=== PATIENT | male | born 1965 | race Caucasian/White ===

== ENCOUNTER → 2017-08-01 | Outpatient (CLI) | payer OTHER ==
--- NOTE | 2017-08-01 19:53 | MR ---
EXAMINATION TYPE: MR knee LT wo con DATE OF EXAM: 08/01/2017 5:05 PM COMPARISON: NONE HISTORY: Pain TECHNIQUE: Multiplanar, multisequence imaging of the left knee is performed. FINDINGS: MEDIAL MENISCUS: Posterior horn medial meniscal tear. Anterior horn is intact. LATERAL MENISCUS: Anterior and posterior horns are intact without tear. CRUCIATE LIGAMENTS: The anterior and posterior cruciate ligaments are intact and unremarkable. COLLATERAL LIGAMENTS: The medial collateral ligament and lateral collateral ligament complex are intact and unremarkable. EXTENSOR MECHANISM: Visualized quadriceps and patellar tendons are intact. EFFUSION: No evidence for joint effusion. POPLITEAL CYST: No popliteal/garrett cyst. TRICOMPARTMENT SPACES: The tricompartment joint spaces appear within normal limits. CARTILAGE: The articular cartilage is maintained without abnormal signal or full-thickness defect. BONE MARROW SIGNAL: No focal abnormal marrow signal is appreciated: OTHER: Strain and partial tear of the popliteus musculature and tendon. IMPRESSION: 1. Medial meniscal tear. 2.Strain and partial tear of the popliteus musculature and tendon.
== END | disposition home or self-care (01) ==
LOC: RADMRIMAIN 16:23
PROVIDERS: ATTEND Orthopaedic Surgery
DX: S83.242A Other tear of medial meniscus, current injury, left knee, initial encounter (principal); S86.912A Strain of unspecified muscle(s) and tendon(s) at lower leg level, left leg, initial encounter

== ENCOUNTER 2017-09-14 08:30 | Day surgery (SDC) | payer OTHER ==
[2017-09-06 23:25] VITALS: BMI 29.0
--- NOTE | 2017-09-13 15:21 | HP ---
HISTORY AND PHYSICAL REASON FOR ADMISSION: Surgery scheduled for 09/14/2017 Karan Lockett is a 51-year-old patient seen with progressive left knee pain. Treatment options were discussed, patient elected to proceed with left knee arthroscopy. Consent was obtained. PAST MEDICAL HISTORY: Noncontributory. PAST SURGICAL HISTORY: Knee arthroscopy, shoulder arthroscopy. DAILY MEDICATIONS: Ibuprofen. ALLERGIES: None reported. SOCIAL HISTORY: Patient denies tobacco use. PHYSICAL EXAMINATION: Evaluation of the left knee range of motion 0 to 120 degrees. Tenderness medial joint line. Positive medial Kris's. Ligaments stable. Hip rotation without pain. Distal neurovascular exam is intact. RADIOGRAPHS: Radiographs of the left knee revealed mild osteoarthritis. MRI left knee revealed medial meniscal tear. IMPRESSION: Internal derangement, left knee with medial meniscal tear. PLAN: Left knee arthroscopy with partial meniscectomy and debridement. Surgery scheduled for 09/14/2017. MMODL / IJN: [id number] /
[~2017-09-14 08:30] MED LIST: DEXAMETHASONE SOD PHOSPHATE 10 MG/ML 1 ML VIAL IV ONE; LACTATED RINGERS 1,000 ML IV SCH; LIDOCAINE 1% 20 ML VIAL (10MG/ML) FOR IV START INTRADERMA PRN; MIDAZOLAM 2 MG/2 ML VIAL IV PRN; ONDANSETRON 4 MG/2 ML VIAL IVP ONE; SCOPOLAMINE 1.5MG/72HR PATCH TRANSDERM ONE; ceFAZolin IN SWFI 2 GM/20 ML SYRINGE IVP ONE
[2017-09-14] MEDS ORDERED: MIDAZOLAM 2 MG/2 ML VIAL ONE (08:59)
[2017-09-14] MEDS ORDERED: PROPOFOL 10 MG/ML 20 ML VIAL IV ONE (08:59)
[2017-09-14] MEDS ORDERED: fentaNYL (PF) 50 MCG/ML 2 ML AMP ONE (08:59)
[2017-09-14] MEDS ORDERED: KETOROLAC 30 MG/ML 1 ML VIAL ONE (08:59)
[2017-09-14] MEDS ORDERED: LIDOCAINE 1% INJ 10MG/ML (20 ML MDV) ONE (08:59)
[2017-09-14] MEDS ORDERED: BUPIVACAINE (PF) 0.25% 30 ML VIAL SQ ONE (09:21)
[2017-09-14 09:54] VITALS: TEMP 97.5
--- NOTE | 2017-09-14 09:56 | P.OP ---
Date of Procedure: 09/14/17 Preoperative Diagnosis: Internal derangement left knee Postoperative Diagnosis: 1. Tear medial and lateral meniscus left knee 2. Grade 3 chondromalacia medial femoral condyle left knee 3. Grade 3 chondromalacia patella left knee 4. Reactive synovitis medial and suprapatellar compartments left knee Procedure(s) Performed: 1. Arthroscopic partial medial and lateral meniscectomy left knee 2. Arthroscopic chondroplasty medial femoral condyle left knee 3. Arthroscopic chondroplasty patella left knee 4. Arthroscopic partial synovectomy medial and suprapatellar compartments left knee Implants: none Anesthesia: YASHA, local Surgeon: Peter Loving Estimated Blood Loss (ml): 10 Pathology: none sent Condition: stable Disposition: PACU Indications for Procedure: 51-year-old patient seen with progressive left knee pain. After treatment options were discussed, he elected to proceed with arthroscopy. Operative Findings: see description of procedure Description of Procedure: Patient was taken to the operative suite. Patient underwent a general anesthetic by the department of anesthesia. Patient was given preoperative antibiotics. The left lower extremity was placed in a well-padded arthroscopic leg acevedo. The left leg was prepped and draped in the normal sterile orthopedic fashion. A lateral parapatellar and suprapatellar incision was made. Trochars were inserted. Arthroscopy was initiated. Suprapatellar pouch revealed diffuse thick reactive synovitis. The patellofemoral joint appeared to articulate congruently. There was grade 3 chondromalacia of the patella with some osteochondral tears present.. The scope was guided into the medial gutter. No loose bodies or plica were identified. The scope was then guided into the medial compartment. A medial parapatellar incision was made. Trocar inserted followed by probe. There was a complex tear posterior horn medial meniscus. Grade 3 chondromalacia changes of the medial femoral condyle with osteochondral tears present. Reactive synovitis anteriorly. Grade 1/2 chondromalacia changes of the medial tibial plateau. I performed a partial medial meniscectomy down to stable tissue. I performed a chondroplasty of the medial femoral condyle down to stable tissue. I performed a partial synovectomy. The residual meniscus and osteochondral surface were found to be stable. Scope and probe were then guided into the intercondylar notch. Cruciates were identified, probed and found to be stable. The scope and probe were then guided into lateral compartment. There was a small superficial radial tear midbody lateral meniscus. The lateral femoral condyle and tibial plateau were stable. No reactive synovitis or loose bodies. A partial lateral meniscectomy was performed on a stable tissue. The residual meniscus was stable. The scope was in guided back into the suprapatellar compartment. I introduced a motorized shaver into the suprapatellar compartment. I debrided piecemeal fragments of meniscus I encountered. I performed a chondroplasty of the patella down to stable tissue and partial synovectomy. The shaver was removed. I took one more look on the entire knee, no residual debris. Instruments were now removed from the joint. The joint was infiltrated with .25 % Marcaine. Steri-Strips were applied to the portal sites. Sterile dressings were applied. The patient was placed into a JEFRY hose. No tourniquet was utilized. The patient was awakened, transferred to a bed and taken to recovery stable satisfactory condition.
[2017-09-14] MEDS: HYDROmorphone 0.5 MG/0.5 ML SYRINGE IVP PRN ×2 (10:07→10:18)
[2017-09-14 10:50] VITALS: RESP 18
[2017-09-14] MEDS ORDERED: HYDROcodone/APAP 5-325MG 1 EACH TAB PO ONE (11:10)
[2017-09-14 11:52] VITALS: BP 116/80; PULSE 61
== END 2017-09-14 12:16 | disposition home or self-care (01) ==
LOC: OR 08:30
PROVIDERS: ATTEND Orthopaedic Surgery
DX: S83.242A Other tear of medial meniscus, current injury, left knee, initial encounter (principal); S83.282A Other tear of lateral meniscus, current injury, left knee, initial encounter; X58.XXXA Exposure to other specified factors, initial encounter; M22.42 Chondromalacia patellae, left knee; M65.862 Other synovitis and tenosynovitis, left lower leg; Z79.1 Long term (current) use of non-steroidal anti-inflammatories (NSAID)
CPT/HCPCS: 29880; J2250; J1100; J0690; J2405; J2001; J3010; J1885; J2704; J1170

== ENCOUNTER → 2019-02-25 | Outpatient (CLI) | payer OTHER | END | disposition home or self-care (01) | LOC: LABPAT 15:40 | PROVIDERS: ATTEND Orthopaedic Surgery | DX: Z01.812 Encounter for preprocedural laboratory examination (principal) | CPT/HCPCS: 87070 ==

== ENCOUNTER 2019-03-18 05:59 | Day surgery (SDC) | payer OTHER ==
[2019-03-13 11:24] VITALS: BMI 28.5
--- NOTE | 2019-03-17 13:40 | HP ---
HISTORY AND PHYSICAL DATE OF SURGERY: 03/18/2019 Karan Lockett 53-year-old patient seen with symptomatic left knee osteoarthritis. We discussed treatment options with him. He elected to proceed with left total knee arthroplasty. Consent regarding the procedure was obtained. Medical clearance provided by Dr. Jamshid Hobbs. PAST MEDICAL HISTORY: Noncontributory. PAST SURGICAL HISTORY: Knee arthroscopy, shoulder arthroscopy. DAILY MEDICATIONS: Ibuprofen as needed. ALLERGIES: None reported. SOCIAL HISTORY: Denies tobacco use. PHYSICAL EXAMINATION: Evaluation of the left knee is range of motion is 0 to 130 degrees. He has tenderness along the medial joint line. Crepitus along the medial and patellofemoral compartments with range of motion. Pain with patellofemoral compression. Ligaments stable. Hip rotation without pain. His distal neurovascular exam is intact. RADIOGRAPHS: Radiographs of the left knee revealed moderate to severe osteoarthritic changes. IMPRESSION: Left knee osteoarthritis. PLAN: Left total knee arthroplasty. MMODL / IJN: [id number] /
[~2019-03-18 05:59] MED LIST changes: +ACETAMINOPHEN TAB 500 MG TAB PO ONE; -DEXAMETHASONE SOD PHOSPHATE 10 MG/ML 1 ML VIAL IV ONE; +MELOXICAM 7.5 MG TAB PO ONE; -MIDAZOLAM 2 MG/2 ML VIAL IV PRN; -SCOPOLAMINE 1.5MG/72HR PATCH TRANSDERM ONE; +TRANEXAMIC ACID 1,000 MG in SODIUM CHLORIDE 0.9% 100 ML IVPB ONE
[2019-03-18 06:41] VITALS: RESP 16
[2019-03-18] MEDS ORDERED: fentaNYL (PF) 50 MCG/ML 2 ML AMP IV ONE (06:52)
[2019-03-18] MEDS ORDERED: MIDAZOLAM (PF) 2 MG/2 ML VIAL IV ONE (06:52)
[2019-03-18] MEDS ORDERED: DEXAMETHASONE SOD PHOS (MDV) 100 MG/10 ML VIAL IV ONE (07:17)
[2019-03-18] MEDS ORDERED: SCOPOLAMINE 1.5MG/72HR PATCH TRANSDERM ONE (07:17)
[2019-03-18] MEDS ORDERED: ROPIVACAINE 246.25 MG, EPINEPHrine 0.5 MG, KETOROLAC 30 MG, cloNIDine HCL/PF 80 MCG, WA... MISCELLANE ONE ×5 (07:23)
[2019-03-18] MEDS ORDERED: SUCCINYLCHOLINE CHLORIDE 100 MG/5 ML SYR IV ONE (07:26)
[2019-03-18] MEDS ORDERED: SODIUM CHLORIDE 0.9% 100 ML BAG ONE (07:26)
[2019-03-18] MEDS ORDERED: LIDOCAINE 1% INJ 10MG/ML (20 ML MDV) ONE (07:26)
[2019-03-18] MEDS ORDERED: fentaNYL (PF) 50 MCG/ML 2 ML AMP ONE (07:26)
[2019-03-18] MEDS ORDERED: PROPOFOL 10 MG/ML 20 ML VIAL IV ONE (07:26)
[2019-03-18] MEDS ORDERED: MIDAZOLAM 2 MG/2 ML VIAL ONE (07:26)
[2019-03-18] MEDS ORDERED: HYDROmorphone (PF) 1 MG/ML ONE (07:26)
[2019-03-18] MEDS ORDERED: TRANEXAMIC ACID 1,000 MG/10 ML VIAL ONE (07:26)
[2019-03-18] MEDS ORDERED: ceFAZolin 3,000 MG in SODIUM CHLORIDE 0.9% IRRIGATIO 3,000 ML IRRIGATION ONE (08:08)
[2019-03-18] MEDS ORDERED: LACTATED RINGERS 1,000 ML IV ONE (08:45)
[2019-03-18] MEDS ORDERED: ROPIVACAINE 1,100 MG, SODIUM CHLORIDE 0.9% 500 ML 330 ML MISCELLANE PRN ×2 (09:44)
[2019-03-18] MEDS ORDERED: HYDROcodone/APAP 7.5-325MG 1 EACH TAB PO PRN (09:48)
[2019-03-18] MEDS ORDERED: HYDROcodone/APAP 5-325MG 1 EACH TAB PO PRN (09:48)
[2019-03-18] MEDS ORDERED: NALOXONE 0.4 MG/ML 1 ML VIAL IV PRN ×2 (09:48→10:15)
[2019-03-18] MEDS ORDERED: HYDROmorphone 0.5 MG/0.5 ML SYRINGE IVP PRN ×2 (09:48)
[2019-03-18] MEDS ORDERED: ONDANSETRON 4 MG/2 ML VIAL IVP PRN (09:48)
[2019-03-18] MEDS ORDERED: HYDROmorphone 1 MG/ML 1 ML SYRINGE IVP PRN (09:48)
--- NOTE | 2019-03-18 09:48 | P.OP ---
Date of Procedure: 03/18/19 Preoperative Diagnosis: Left knee osteoarthritis Postoperative Diagnosis: Left knee osteoarthritis Procedure(s) Performed: Left total knee arthroplasty Implants: 1. Microport evolution size 6 left MP cemented femoral component 2. Microport evolution 6+ left cemented tibial baseplate 3. Microport evolution size 6 left CS 10 mm polyethylene tibial insert 4. Microport advance 38 mm all polyethylene cemented patella Anesthesia: GETA, regional (Abductor canal catheter), local Surgeon: Peter Loving [employer] Sales Executive #1: Colt Martinez Estimated Blood Loss (ml): 50 Pathology: other (Bone) Condition: stable Disposition: PACU Indications for Procedure: 53-year-old patient seen with symptomatic left knee osteoarthritis. After treatment options were discussed, he elected to proceed with knee arthroplasty. Operative Findings: see description of procedure Description of Procedure: Patient was taken to the operative suite after having an adductor canal catheter placed by the department of anesthesia for postoperative pain management. Patient underwent a general anesthetic by the department of anesthesia. Patient was given preoperative IV intake antibiotics and TXA. A well-padded tourniquet was placed about the left lower extremity. The lower extremity was then prepped and draped in the normal sterile orthopedic fashion. The extremity was elevated, a tourniquet was insufflated to 300. A standard anterior incision was made sharply through skin. Dissection was taken down through the subcutaneous soft tissues down to the extensor mechanism. A medial arthrotomy was performed, patella was everted and knee was flexed. There was advanced osteoarthritis noted. I introduced my distal intramedullary femoral drill. I then introduced the distal femoral cutting jig. Vishal MENDEZ secured the cutting jig with 2 pins. I held retractors in position while Vishal MENDEZ performed the distal femoral resection through the guide area we now removed her distal femoral cutting guide. We now placed our 4-in-1 femoral cutting block and positioned and it was secured with 2 pins by Vishal MEDNEZ while I held the block in position. The distal femoral finishing was now completed. A proximal tibial cutting guide was positioned. I held the guide in the appropriate position with both hands well Vishal MENDEZ inserted stabilizing pins into the guide. Prox imal tibial cut was made. We now placed a trial femoral component into position, along with an appropriate size tibial tray and insert. We now took the knee through range of motion and had full extension good flexion and good overall soft tissue balance noted. The patella was everted and stabilized with 2 towel clips held by Vishal MENDEZ while I performed a flush with patellar quad tendon utilizing a fresh sawblade. We templated the patella, appropriate drill holes were made. An appropriate trial patella was positioned, knee was taken through full range of motion with the patella tracking very nicely. The trial patella was removed. Drill holes were made through the femoral component. All trial components were removed after marking off the appropriate rotation of the tibia. Retractors were now positioned along the proximal tibia. An appropriate keel punch was made with the appropriate size tibial guide by myself on Vishal MENDEZ assisted by holding retractors. At this point appropriate size implants were chosen and opened. The joint was irrigated copiously with pulse lavage mechanical irrigation. The posterior capsule was infiltrated with local analgesic. The wound was irrigated with pulse lavage mechanical irrigation. We mixed antibiotic methylmethacrylate. We placed the knee into flexion. We placed multiple retractors assisted by Vishal MENDEZ to expose the proximal tibia. Once the methyl methacrylate was ready, the tibial component was cemented into place removing any excess methylmethacrylate form by both myself and Vishal MENDEZ. The femoral component was cemented into place removing the removing any excess methylmethacrylate performed by both myself and Vishal MENDEZ. We then inserted the appropriate size polyethylene tibial insert. We made sure that it was locked into position. We took the knee into full extension, and then back in a flexion making sure we had removed any excess methylmethacrylate. The patellar component was then cemented down and secured with clamp. Excess methylmethacrylate removed. We kept the knee in full extension, patellar clamp in position until methylmethacrylate had hardened. Once it had hardened the patellar clamp was removed. The knee was taken through full range of motion. The patella tracked nicely. There was good soft tissue balancing. The tourniquet was now released. Additional hemostasis was achieved via electrocautery. A second gram of TXA was given. The wound again was irrigated with pulse lavage mechanical irrigation. The superficial soft tissues were infiltrated local analgesic. The extensor mechanism was repaired with Vicryl. We checked the repair with range of motion and it was stable. The subcutaneous soft tissues were repaired with Vicryl in layers. The skin was approximated with pernio/Dermabond. Sterile dressings were applied followed by loose web roll and Harman bandage. The patient was transferred to a bed, and taken to recovery in stable and satisfactory condition. Vishal MENDEZ assisted with this complex procedure.
[2019-03-18] MEDS: MEPERIDINE 50 MG/ML SYRINGE IVP ONE ×2 (09:50→10:05)
[2019-03-18 09:54] VITALS: TEMP 97.7
[2019-03-18] MEDS ORDERED: LACTATED RINGERS 1,000 ML IV SCH (10:00)
[2019-03-18] MEDS: HYDROmorphone 0.5 MG/0.5 ML SYRINGE IVP PRN ×2 (10:33→10:41)
--- NOTE | 2019-03-18 10:41 | P.ANPRN ---
Procedure Note - Anesthesia - Nerve Block Performed Left Adductor Canal Infusion Time Out Performed: Yes Date of Procedure: 03/18/19 Procedure Start Time: 06:58 Procedure Stop Time: 07:10 Location of Patient Procedure: PreOp Indication: Acute Post-Operative Pain, Requested by physician Sedation Type: Sedate with meaningful contact maintained Preparation: Sterile Prep, Sterile Dressing Position: Supine Catheter: Indwelling Needle Types: Pajunk Needle Gauge: 18 Technique: Ultrasound Injectate: 0.5% Ropivacaine (see comment for volume) (20 ml)
--- NOTE | 2019-03-18 10:43 | XR ---
Left knee HISTORY: Postop 2 views of the left knee Patient is status post left knee arthroplasty. There is lucency in the soft tissues compatible with p ostop state. There is anatomic alignment. IMPRESSION: Orthopedic follow-up.
[2019-03-18] MEDS ORDERED: ceFAZolin IN SWFI 2 GM/20 ML SYRINGE IVP ONE (13:30)
[2019-03-18 15:07] VITALS: BP 119/74; PULSE 73
== END 2019-03-18 15:01 | disposition home health service (06) ==
LOC: OR 05:59
PROVIDERS: ATTEND Orthopaedic Surgery
DX: M17.12 Unilateral primary osteoarthritis, left knee (principal); Z79.1 Long term (current) use of non-steroidal anti-inflammatories (NSAID)
CPT/HCPCS: 27447; 64448; 88300; 73560; 97161; C1776; C1713; C1772; J2250 ×2; J0171; J2175; J2405; J0690 ×2; J2001; J3010; J1885; J1170 ×2; J1100; J2795; J0330; J2704; J0735

== ENCOUNTER → 2020-04-21 | Outpatient (CLI) | payer OTHER ==
--- NOTE | 2020-04-21 19:49 | CT ---
EXAMINATION TYPE: CT abdomen wo con DATE OF EXAM: 04/21/2020 COMPARISON: None HISTORY: Umbilical hernia, periumbilic swelling CT DLP: 700.9 mGycm Automated exposure control for dose reduction was used. Images were obtained from the diaphragm to the iliac crests with oral contrast only. Lung bases are clear. There is no pleural effusion. Heart size is normal. Liver spleen pancreas gallbladder stomach appear normal. Bile ducts are not dilated. There is no adre nal mass. Kidneys have normal size. There is no hydronephrosis. Ureters are not dilated. There is no retroperitoneal adenopathy. There is small umbilical hernia measuring 2 cm that contains fat. I see n o edema. There is no evidence of mesenteric edema. There is no ascites or free air. There is no sign of a phuong l obstruction. Appendix is posterior and appears normal. Lumbar vertebra have normal alignment. There is no compression fracture. Disc spaces are fairly tana l. IMPRESSION: Small umbilical hernia contains fat. Otherwise negative CT scan of the abdomen.
== END | disposition home or self-care (01) ==
LOC: RADCTMAIN 18:11
PROVIDERS: ATTEND Family Medicine
DX: K42.0 Umbilical hernia with obstruction, without gangrene (principal)
CPT/HCPCS: 74150

== ENCOUNTER 2020-11-09 17:52 | Observation (INO) | payer OTHER ==
[2020-11-09 17:34] LABS: HCT 42.3 % (39.0-53.0); HGB 15.3 gm/dL (13.0-17.5); MCH 30.9 pg (25.0-35.0); MCHC 36.2 g/dL (31.0-37.0); MCV 85.4 fL (80.0-100.0); Mean Platelet Volume 7.6; Platelet Count 205 k/uL (150-450); RBC 4.95 m/uL (4.30-5.90); RDW 13.1 % (11.5-15.5); WBC 7.1 k/uL (3.8-10.6)
--- NOTE | 2020-11-09 17:40 | CT ---
EXAMINATION TYPE: CT abdomen pelvis w con DATE OF EXAM: 11/09/2020 COMPARISON: CT scan of the abdomen and pelvis with contrast. Study date: 11/09/2020 5:06 PM. HISTORY: Right lower quadrant pain. Contrast: 100 cc of Isovue-300 and oral contrast. Total DLP 1538. Comparison is made to prior examination from 04/21/2020 HISTORY: Right lower quadrant abdominal pain. CT DLP: 1538 mGycm Automated exposure control for dose reduction was used. TECHNIQUE: Helical acquisition of images was performed from the lung bases through the pelvis. CONTRAST: Performed with Oral Contrast and with IV Contrast, patient injected with 100ml mL of Isovue 300. FINDINGS: LUNG BASES: No significant abnormality is appreciated. LIVER/GB: No significant abnormality is appreciated. PANCREAS: Pancreas tail appears irregular and somewhat prominent, however, no definite mass lesion is seen. Overall appearance unchanged compared to prior examination. SPLEEN: No significant abnormality is seen. ADRENALS: No significant abnormality is seen. KIDNEYS: No significant abnormality is seen. FREE AIR: No free air is visualized. RETROPERITONEAL ADENOPATHY: None visualized REPRODUCTIVE ORGANS: No significant abnormality is seen URINARY BLADDER: No significant abnormality is seen. PELVIC ADENOPATHY: None visualized. OSSEOUS STRUCTURES: No significant abnormality is seen. BOWEL: The appendix appears slightly prominent. A tiny appendicolith is seen in the appendix. There is no significant fat stranding or fluid collections around the appendix. No definite evidence of gracie endicitis. There is extensive diverticulosis with fat stranding along the sigmoid colon in the anterior pelvis w ithout definite evidence of an abscess. Mild mild diverticulitis or resolving diverticulitis is possi ble. No definite abscess collections. No pneumoperitoneum. Additionally, there is focal dilatation of the terminal ileum best seen on image 3-4 negative appendi x. The findings could represent mild ileus. OTHER: Prostate gland is enlarged measuring 6 cm. IMPRESSION: 1. APPENDIX APPEARS SLIGHTLY PROMINENT. A TINY APPENDICOLITH IS SEEN IN THE APPENDIX. NO ADDITIONAL E VIDENCE TO SUGGEST APPENDICITIS. 2. SEVERE AND EXTENSIVE DIVERTICULOSIS. MILD FAT STRANDING IS SEEN IN THE MID SIGMOID COLON IN THE AN TERIOR PELVIS. RESOLVING OR MILD DIVERTICULITIS IS FEASIBLE. NO DEFINITE EVIDENCE OF A PROMINENT DIVE RTICULITIS OR ABSCESS COLLECTION. NO PNEUMOPERITONEUM. ETIOLOGY FOR PATIENT'S SYMPTOMS AREN'T CLEAR. 3. THERE IS ALSO FOCAL DILATATION OF THE TERMINAL ILEUM SEEN BEST ON IMAGE 334 NEAR THE APPENDIX. THE FINDINGS COULD REPRESENT MILD ILEUS. NO DEFINITE EVIDENCE OF BOWEL OBSTRUCTION. Note: Differential diagnosis includes ileus, mild radiculitis, resolving diverticulitis, and mild gracie endicitis. No pneumoperitoneum or bowel obstruction. Please correlate clinically indicated.
[2020-11-09] MEDS ORDERED: PIPERACILLIN-TAZOBACTAM 3.375 GM in SODIUM CHLORIDE 0.9% 100 ML IVPB STA (19:31)
[2020-11-09] MEDS ORDERED: HYDROcodone/APAP 5-325MG 1 EACH TAB PO PRN (19:34)
[2020-11-09] MEDS ORDERED: MORPHINE SULFATE 4 MG/ML SYRINGE IV PRN (19:34)
[2020-11-09] MEDS ORDERED: NALOXONE 0.4 MG/ML 1 ML VIAL IV PRN (19:34)
[2020-11-09] MEDS ORDERED: ONDANSETRON 4 MG/2 ML VIAL IVP PRN (19:34)
[2020-11-09] MEDS ORDERED: ACETAMINOPHEN TAB 325 MG TAB PO PRN (19:34)
--- NOTE | 2020-11-09 19:34 | ED ---
Abdominal Pain HPI - General Chief Complaint: Abdominal Pain Stated Complaint: abnormal CT Time Seen by Provider: 11/09/20 19:19 Source: patient, RN notes reviewed Mode of arrival: ambulatory Limitations: no limitations - History of Present Illness Initial Comments: 54-year-old male presents emergency Department with chief complaint of right lower quadrant abdominal pain. Patient states the pain started Monday afternoon. Patient states pain is increase and located only has right lower quadrant. Patient denies any chest pain. Vomiting states slight nausea is slightly decreased oral intake he states he had a loose stool today denies any melanotic is no constipation or dysuria no hematuria patient's had prior hernia repair by Dr. sanchez. Patient does have a history of diverticulosis denies any prior reticulitis - Related Data Home Medications Medication Instructions Recorded Confirmed Ibuprofen [Motrin] 800 mg PO Q6H PRN 03/13/19 03/18/19 Previous Rx's Medication Instructions Recorded Aspirin [Adult Low Dose Aspirin EC] 81 mg PO BID #60 tablet. 03/18/19 Docusate [Colace] 100 mg PO DAILY #30 capsule 03/18/19 HYDROcodone/APAP 7.5-325MG [[place] 1 - 2 each PO Q6HR PRN #56 tab 03/18/19 7.5] traMADol HCl [Ultram] 50 mg PO Q6H PRN #28 tab 03/18/19 Allergies Allergy/AdvReac Type Severity Reaction Status Date / Time No Known Allergies Allergy Verified 11/09/20 17:58 Review of Systems ROS Statement: Those systems with pertinent positive or pertinent negative responses have been documented in the HPI. ROS Other: All systems not noted in ROS Statement are negative. Past Medical History Past Medical History: Hyperlipidemia History of Any Multi-Drug Resistant Organisms: None Reported Past Surgical History: Orthopedic Surgery Additional Past Surgical History / Comment(s): analia knee surgery, rt rotator cuff Past Anesthesia/Blood Transfusion Reactions: Motion Sickness Past Psychological History: No Psychological Hx Reported Smoking Status: Never smoker Past Alcohol Use History: Daily Past Drug Use History: None Reported General Exam Limitations: no limitations General appearance: alert, in no apparent distress Head exam: Present: atraumatic, normocephalic, normal inspection Eye exam: Present: normal appearance, PERRL, EOMI. Absent: scleral icterus, conjunctival injection, periorbital swelling ENT exam: Present: normal exam, normal oropharynx, mucous membranes moist Neck exam: Present: normal inspection, full ROM. Absent: tenderness, meningismus, lymphadenopathy Respiratory exam: Present: normal lung sounds bilaterally. Absent: respiratory distress, wheezes, rales, rhonchi, stridor Cardiovascular Exam: Present: regular rate, normal rhythm, normal heart sounds. Absent: systolic murmur, diastolic murmur, rubs, gallop, clicks GI/Abdominal exam: Present: soft, tenderness (Moderate right lower quadrant tenderness), normal bowel sounds. Absent: distended, guarding, rebound, rigid Back exam: Absent: CVA tenderness (R), CVA tenderness (L) Neurological exam: Present: alert, oriented X3 Skin exam: Present: warm, dry, intact, normal color. Absent: rash Course Vital Signs 11/09/20 17:55 Temperature 97.9 F Pulse Rate 61 Respiratory 18 Rate Blood Pressure 116/77 O2 Sat by Pulse 98 Oximetry Medical Decision Making - Medical Decision Making CT reviewed shows dilated appendix with appendicolith, dilated cecum mild fat stranding for diverticulitis. Patient will be admitted to medicine with IV antibiotics and consult surgery - Lab Data Result diagrams: 11/09/20 17:10 Lab Results 11/09/20 Range/Units 17:10 WBC 7.1 (3.8-10.6) k/uL RBC 4.95 (4.30-5.90) m/uL Hgb 15.3 (13.0-17.5) gm/dL Hct 42.3 (39.0-53.0) % MCV 85.4 (80.0-100.0) fL MCH 30.9 (25.0-35.0) pg MCHC 36.2 (31.0-37.0) g/dL RDW 13.1 (11.5-15.5) % Plt Count 205 (150-450) k/uL MPV 7.6 Disposition Clinical Impression: Diverticulitis, Appendicitis Disposition: ADMITTED IP TO THIS HOSP Condition: Fair Referrals: Jamshid Hobbs DO [Primary Care Provider] - 1-2 days
[2020-11-09] MEDS: SODIUM CHLORIDE 0.9% 1,000 ML IV SCH (20:59)
[2020-11-09 21:21] LABS: Appearance,Urine Clear (Clear); Bilirubin,Urine Negative (Negative); Blood,Urine Negative (Negative); Color,Urine Yellow; Glucose,Urine (UA) Negative (Negative); Ketones,Urine Negative (Negative); Leukocyte Esterase,Urine Negative (Negative); Nitrite,Urine Negative (Negative); Protein,Urine Negative (Negative); Urobilinogen,Urine <2.0 mg/dL (<2.0)
[2020-11-09 21:35] LABS: Specific Gravity,Urine >1.050 (1.001-1.035)
[2020-11-10 00:43] LABS: ALT 25 U/L (4-49); AST 23 U/L (17-59); African American GFR (CKD) >90 (>60 ml/min/1.73 sqM); Albumin 3.8 g/dL (3.5-5.0); Albumin/Globulin Ratio 1.6; Alkaline Phosphatase 86 U/L (38-126); Anion Gap 5 mmol/L; Blood Urea Nitrogen 10 mg/dL (9-20); Calcium 8.7 mg/dL (8.4-10.2); Carbon Dioxide 25 mmol/L (22-30); Chloride 104 mmol/L (98-107); Globulin 2.4 g/dL; Glucose 93 mg/dL (74-99); Non-African American GFR(CKD) >90 (>60 ml/min/1.73 sqM); Potassium 4.1 mmol/L (3.5-5.1); Sodium 134 mmol/L (137-145); Total Bilirubin 0.8 mg/dL (0.2-1.3); Total Protein 6.2 g/dL (6.3-8.2)
[2020-11-10] MEDS: PIPERACILLIN-TAZOBACTAM 3.375 GM in SODIUM CHLORIDE 0.9% 100 ML IVPB SCH ×3 (03:52→21:03)
[2020-11-10 11:59] LABS: Basophils % (A) 1 %; Eosinophils # (A) 0.1 k/uL (0-0.7); Eosinophils % (A) 2 %; HCT 44.9 % (39.0-53.0); HGB 15.5 gm/dL (13.0-17.5); Lymphocytes # (A) 1.6 k/uL (1.0-4.8); Lymphocytes % (A) 30 %; MCH 29.9 pg (25.0-35.0); MCHC 34.5 g/dL (31.0-37.0); MCV 86.6 fL (80.0-100.0); Mean Platelet Volume 7.6; Monocytes # (A) 0.4 k/uL (0-1.0); Monocytes % (A) 7 %; Neutrophils # (A) 3.1 k/uL (1.3-7.7); Neutrophils % (A) 59 %; Platelet Count 185 k/uL (150-450); RBC 5.18 m/uL (4.30-5.90); RDW 12.4 % (11.5-15.5); WBC 5.3 k/uL (3.8-10.6)
--- NOTE | 2020-11-10 12:00 | P.GSCN ---
History of Present Illness Consult date: 11/10/20 History of present illness: This 54-year-old male presented with a chief complaint of emergency department last night of right lower quadrant pain. He states his pain began on Monday. He's never had pain like this before he has had diverticulitis in the past he says that was mostly on his left side however. CAT scan was performed in the emergency department last night and there was fat stranding around the sigmoid colon and a prominent appendix radiologist stated they could not rule out appendicitis. Surgery was consulted however nobody called me last night patient was admitted and I was not notified until this morning 12 hours later. Today patient states he's feeling much better. He states that yesterday his pain was really only when he was moving and today he is not experiencing the same pain. He did have a bout of diarrhea this morning he denies any nausea or vomiting. He denies any sick contacts. He denies eating anything out of the ordinary he had finished on Monday. He states he is hungry he has no other complaints Past Medical History Past Medical History: Hyperlipidemia History of Any Multi-Drug Resistant Organisms: None Reported Past Surgical History: Orthopedic Surgery Additional Past Surgical History / Comment(s): analia knee surgery, rt & left rotator cuff Past Anesthesia/Blood Transfusion Reactions: Motion Sickness Past Psychological History: No Psychological Hx Reported Smoking Status: Never smoker Past Alcohol Use History: Daily Additional Past Alcohol Use History / Comment(s): makes own beer. Past Drug Use History: None Reported Medications and Allergies Home Medications Medication Instructions Recorded Confirmed Type Naproxen Sodium [Aleve] 220 mg PO DAILY PRN 11/09/20 11/09/20 History Allergies Allergy/AdvReac Type Severity Reaction Status Date / Time No Known Allergies Allergy Verified 11/09/20 17:58 Surgical - Exam Osteopathic Statement: *. No significant issues noted on an osteopathic structural exam other than those noted in the History and Physical/Consult. Vital Signs Temp Pulse Resp BP Pulse Ox 97.9 F 61 18 116/77 98 11/09/20 17:55 11/09/20 17:55 11/09/20 17:55 11/09/20 17:55 11/09/20 17:55 - General well developed, well nourished, no distress - Eyes PERRL - Respiratory normal expansion, normal respiratory effort - Abdomen Negative Rovsing's, no rebound no rigidity no guarding Abdomen: soft, non tender - Neurologic normal coordination, normal sensation - Psychiatric oriented to time, oriented to person, oriented to place Results - Labs 11/09/20 17:10 11/10/20 00:04 Abnormal Lab Results - Last 24 Hours (Table) 11/09/20 11/10/20 Range/Units 20:57 00:04 Sodium 134 L (137-145) mmol/L Total Protein 6.2 L (6.3-8.2) g/dL Ur Specific [place] >1.050 H (1.001-1.035) Diabetes panel 11/10/20 Range/Units 00:04 Sodium 134 L (137-145) mmol/L Potassium 4.1 (3.5-5.1) mmol/L Chloride 104 (98-107) mmol/L Carbon Dioxide 25 (22-30) mmol/L BUN 10 (9-20) mg/dL Creatinine 0.74 (0.66-1.25) mg/dL Glucose 93 (74-99) mg/dL Calcium 8.7 (8.4-10.2) mg/dL AST 23 (17-59) U/L ALT 25 (4-49) U/L Alkaline Phosphatase 86 (38-126) U/L Total Protein 6.2 L (6.3-8.2) g/dL Albumin 3.8 (3.5-5.0) g/dL Calcium panel 11/10/20 Range/Units 00:04 Calcium 8.7 (8.4-10.2) mg/dL Albumin 3.8 (3.5-5.0) g/dL Pituitary panel 11/10/20 Range/Units 00:04 Sodium 134 L (137-145) mmol/L Potassium 4.1 (3.5-5.1) mmol/L Chloride 104 (98-107) mmol/L Carbon Dioxide 25 (22-30) mmol/L BUN 10 (9-20) mg/dL Creatinine 0.74 (0.66-1.25) mg/dL Glucose 93 (74-99) mg/dL Calcium 8.7 (8.4-10.2) mg/dL Adrenal panel 11/10/20 Range/Units 00:04 Sodium 134 L (137-145) mmol/L Potassium 4.1 (3.5-5.1) mmol/L Chloride 104 (98-107) mmol/L Carbon Dioxide 25 (22-30) mmol/L BUN 10 (9-20) mg/dL Creatinine 0.74 (0.66-1.25) mg/dL Glucose 93 (74-99) mg/dL Calcium 8.7 (8.4-10.2) mg/dL Total Bilirubin 0.8 (0.2-1.3) mg/dL AST 23 (17-59) U/L ALT 25 (4-49) U/L Alkaline Phosphatase 86 (38-126) U/L Total Protein 6.2 L (6.3-8.2) g/dL Albumin 3.8 (3.5-5.0) g/dL Assessment and Plan Assessment: Colitis, enteritis Plan: Patient's pain is significantly improving he does not appear to have appendicitis. He has a benign abdomen on physical exam with no tenderness to palpation. This is likely a mild case of diverticulitis versus colitis/enteritis. Continue antibiotics patient was started on a clear liquid diet today with his pain continues to improve he can trial diet tomorrow and be discharged home tomorrow. Continue to monitor while in the hospital.
--- NOTE | 2020-11-10 12:40 | P.HPIM ---
History of Present Illness Patient is a pleasant 54-year-old male came in with the complaints of right lower quadrant abdominal pain and pain in in the medical area. Patient pain was 8/10 in severity yesterday without any nausea vomiting diarrhea. Patient pain is around 4/5 in severity now patient was started on Zosyn patient had a CT of the abdomen which showed fast stranding around the sigmoid colon with prominent appendix possibility of appendicitis and some inflammation in the cecal area as well. actually feels better today. Only has pain when he moves around. Patient is also found to have diverticulosis and some diverticulitis in the si gmoid colon area. Patient is bit nauseous today because of antibiotics he believes. Patient denied any family history of Crohn's or ulcerative colitis. Review of Systems REVIEW OF SYSTEMS: CONSTITUTIONAL: No fever, no malaise, no fatigue. HEENT: No recent visual problems or hearing problems. Denied any sore throat. CARDIOVASCULAR: No chest pain, orthopnea, PND, no palpitations, no syncope. PULMONARY: No shortness of breath, no cough, no hemoptysis. GASTROINTESTINAL: As mentioned in HPI NEUROLOGICAL: No headaches, no weakness, no numbness. HEMATOLOGICAL: Denies any bleeding or petechiae. GENITOURINARY: Denies any burning micturition, frequency, or urgency. MUSCULOSKELETAL/RHEUMATOLOGICAL: Denies any joint pain, swelling, or any muscle pain. ENDOCRINE: Denies any polyuria or polydipsia. The rest of the 14-point review of systems is negative. Past Medical History Past Medical History: Hyperlipidemia History of Any Multi-Drug Resistant Organisms: None Reported Past Surgical History: Orthopedic Surgery Additional Past Surgical History / Comment(s): analia knee surgery, rt & left rotator cuff Past Anesthesia/Blood Transfusion Reactions: Motion Sickness Past Psychological History: No Psychological Hx Reported Smoking Status: Never smoker Past Alcohol Use History: Daily Additional Past Alcohol Use History / Comment(s): makes own beer. Past Drug Use History: None Reported Medications and Allergies Home Medications Medication Instructions Recorded Confirmed Type Naproxen Sodium [Aleve] 220 mg PO DAILY PRN 11/09/20 11/09/20 History Allergies Allergy/AdvReac Type Severity Reaction Status Date / Time No Known Allergies Allergy Verified 11/09/20 17:58 Physical Exam Vitals: Vital Signs Temp Pulse Pulse Resp BP BP Pulse Ox 11/10/20 08:57 60 17 108/68 11/10/20 07:00 97.9 F 61 16 106/70 97 11/10/20 02:00 97.8 F 58 L 16 103/66 97 11/10/20 01:21 66 11/09/20 21:01 97.9 F 61 18 116/77 98 11/09/20 20:00 97.9 F 66 16 121/77 95 11/09/20 19:49 97.9 F 66 16 121/77 95 11/09/20 17:55 97.9 F 61 18 116/77 98 Intake and Output 11/09/20 11/10/20 11/10/20 22:59 06:59 14:59 Other: Voiding Method Toilet Toilet # Voids 1 3 Weight 97.522 kg PHYSICAL EXAMINATION: GENERAL: The patient is alert and oriented x3, not in any acute distress. Well developed, well nourished. HEENT: Pupils are round and equally reacting to light. EOMI. No scleral icterus. No conjunctival pallor. Normocephalic, atraumatic. No pharyngeal erythema. No thyromegaly. CARDIOVASCULAR: S1 and S2 present. No murmurs, rubs, or gallops. PULMONARY: Chest is clear to auscultation, no wheezing or crackles. ABDOMEN: Patient does have some tenderness in the right lower quadrant area, no rebound or rigidity nondistended, normoactive bowel sounds. No palpable organomegaly. MUSCULOSKELETAL: No joint swelling or deformity. EXTREMITIES: No cyanosis, clubbing, or pedal edema. NEUROLOGICAL: Gross neurological examination did not reveal any focal deficits. SKIN: No rashes. Results CBC & Chem 7: 11/10/20 11:42 11/10/20 00:04 Labs: Abnormal Lab Results - Last 24 Hours (Table) 11/09/20 11/10/20 Range/Units 20:57 00:04 Sodium 134 L (137-145) mmol/L Total Protein 6.2 L (6.3-8.2) g/dL Ur Specific [place] >1.050 H (1.001-1.035) Thrombosis Risk Factor Assmnt - Choose All That Apply Any of the Below Risk Factors Present?: No Other Risk Factors: No Thrombosis Risk Factor Assessment Level: Very Low Risk Assessment and Plan Plan: -Right lower quadrant abdominal pain: February surgery evaluated the patient and believe patient has colitis and enteritis the recommending to continue anti biotics patient will continued on antibiotics continued on a IV fluids and patient was started on clear liquid diet. -Mild hypovolemic hyponatremia patient will be continued on IV fluids as mentioned above -DVT prophylaxis with Lovenox GI prophylaxis with Pepcid
[2020-11-10] MEDS: SODIUM CHLORIDE 0.9% 1,000 ML IV SCH ×2 (13:09→21:04)
[2020-11-10] MEDS: FAMOTIDINE 20 MG TAB PO SCH (21:04)
[2020-11-11 02:03] VITALS: RESP 16; TEMP 98.4
[2020-11-11] MEDS: PIPERACILLIN-TAZOBACTAM 3.375 GM in SODIUM CHLORIDE 0.9% 100 ML IVPB SCH ×2 (03:45→12:12)
[2020-11-11 07:07] VITALS: BP 106/71; PULSE 65
[2020-11-11] MEDS ORDERED: ENOXAPARIN 40 MG/0.4 ML SYRINGE SQ SCH (09:00)
[2020-11-11] MEDS: FAMOTIDINE 20 MG TAB PO SCH (09:05)
[2020-11-11] MEDS: SODIUM CHLORIDE 0.9% 1,000 ML IV SCH (12:12)
--- NOTE | 2020-11-11 16:42 | P.DS ---
Providers Date of admission: 11/09/20 19:30 Expected date of discharge: 11/11/20 Attending physician: Karmen Case Consults: 11/10/20 08:56 Consult Physician Urgent Consulting Provider: Slick Garber Consult Reason/Comments: possible appendicitis Do you want consulting provider notified?: Already Contacted [facility] Course: Final diagnosis -Right lower quadrant abdominal pain with possible colitis and enteritis -Mild hypovolemic hyponatremia, improved -DVT prophylaxis -GI prophylaxis -Full code Discharge disposition Patient is being discharged in a stable condition with guarded prognosis to home. Patient will follow-up with Dr. Felton in the outpatient setting upon discharge. Patient is to continue with oral Augmentin twice daily for the next 1 week. Patient also instructed to follow-up with GI and surgery Dr. garber in the outpatient setting. Total time taken is greater than 35 minutes. Hospital course Patient is a pleasant 54-year-old male came in with the complaints of right lower quadrant abdominal pain and pain in in the medical area. Patient pain was 8/10 in severity yesterday without any nausea vomiting diarrhea. Patient pain is around 4/5 in severity now patient was started on Zosyn patient had a CT of the abdomen which showed fast stranding around the sigmoid colon with prominent appendix possibility of appendicitis and some inflammation in the cecal area as well. actually feels better today. Only has pain when he moves around. Patient is also found to have diverticulosis and some diverticulitis in the sigmoid colon area. Patient is bit nauseous today because of antibiotics he believes. Patient denied any family history of Crohn's or ulcerative colitis. 11/11/2020 Patient is seen and evaluated and follow-up with no acute overnight issues. Patient's abdominal discomfort has improved and patient is tolerating diet with no further abdominal pain noted. Surgery following and recommending continued antibiotics. Patient will continue with oral Augmentin twice daily for the next one week to complete the course. Patient also instructed to follow-up outpatient GI, primary care provider, and surgery Dr. garber in the outpatient setting. Patient would like to go home today. Currently no reports of chest pain, shortness of breath, or palpitations. Patient is afebrile. No reports of nausea or vomiting and patient is tolerating diet. Patient will be discharged home today. On exam vital signs are stable. Respiratory system shows diminished breath sounds at the bases with no wheezing or rhonchi noted. Abdomen is soft and nontender. Nervous system shows no focal deficits. Please refer to medication reconciliation sheet for a list of medications. Patient Condition at Discharge: Fair Plan - Discharge Summary Discharge Rx Participant: No New Discharge Prescriptions: New Amoxic-Pot Clav 875-125Mg [Augmentin 875-125] 1 tab PO Q12HR 7 Days #14 tab Famotidine [Pepcid] 20 mg PO BID 30 Days #60 tab Acetaminophen Tab [Tylenol] 650 mg PO Q6HR PRN tab PRN Reason: Mild Pain Or Fever > 100.5 Continue Naproxen Sodium [Aleve] 220 mg PO DAILY PRN PRN Reason: Pain Discharge Medication List Naproxen Sodium [Aleve] 220 mg PO DAILY PRN 11/09/20 [History] Acetaminophen Tab [Tylenol] 650 mg PO Q6HR PRN tab 11/11/20 [Rx] Amoxic-Pot Clav 875-125Mg [Augmentin 875-125] 1 tab PO Q12HR 7 Days #14 tab 11/11/20 [Rx] Famotidine [Pepcid] 20 mg PO BID 30 Days #60 tab 11/11/20 [Rx] Follow up Appointment(s)/Referral(s): Slick Garber DO [Doctor of Osteopathic Medicine] - 1 Week Jamshid Hobbs DO [Primary Care Provider] - 1-2 days Nabil Sosa MD [STAFF PHYSICIAN] - 11/18/20 8:30 am (GI specialist Appointment will be with Hortensia Bunn. Please arrive 15mins early for paperwork.) Patient Instructions/Handouts: Diverticulitis (DC) Activity/Diet/Wound Care/Special Instructions: Activity Limited until follow-up Primary care provider upon discharge Continue antibiotics to complete the course Follow-up with surgery outpatient Establish and follow-up with GI outpatient Discharge Disposition: HOME SELF-CARE
== END 2020-11-11 12:48 | disposition home or self-care (01) ==
LOC: EC 17:52 → 6NMEDSUR 19:30
PROVIDERS: ADMIT Hospitalist; ATTEND Hospitalist
DX: R10.31 Right lower quadrant pain (principal); R11.0 Nausea; E86.1 Hypovolemia; E87.1 Hypo-osmolality and hyponatremia; K57.90 Diverticulosis of intestine, part unspecified, without perforation or abscess without bleeding; K57.32 Diverticulitis of large intestine without perforation or abscess without bleeding; E78.5 Hyperlipidemia, unspecified; Z79.1 Long term (current) use of non-steroidal anti-inflammatories (NSAID); Z20.822 Contact with and (suspected) exposure to COVID-19
CPT/HCPCS: 96361 ×2; 96366 ×2; 96365; 99285; 80053; 83605; 85025; 85027; 81003; 87040; 87635; 74177; 36415; G0378 ×3; J2543 ×3; Q9967

== ENCOUNTER 2020-12-25 09:50 | Day surgery (SDC) | payer OTHER ==
[2020-12-22 14:36] VITALS: BMI 29.2
[~2020-12-25 09:50] MED LIST changes: -ACETAMINOPHEN TAB 500 MG TAB PO ONE; -LIDOCAINE 1% 20 ML VIAL (10MG/ML) FOR IV START INTRADERMA PRN; -MELOXICAM 7.5 MG TAB PO ONE; -ONDANSETRON 4 MG/2 ML VIAL IVP ONE; -TRANEXAMIC ACID 1,000 MG in SODIUM CHLORIDE 0.9% 100 ML IVPB ONE; -ceFAZolin IN SWFI 2 GM/20 ML SYRINGE IVP ONE
[2020-12-25 10:35] VITALS: TEMP 96.4
[2020-12-25] MEDS ORDERED: LACTATED RINGERS 1,000 ML IV ONE (10:39)
[2020-12-25] MEDS ORDERED: PROPOFOL 10 MG/ML 20 ML VIAL IV ONE (11:07)
[2020-12-25] MEDS ORDERED: LIDOCAINE 1% INJ 10MG/ML (20 ML MDV) ONE (11:07)
--- NOTE | 2020-12-25 11:20 | P.PCN ---
Date of Procedure: 12/25/20 Procedure(s) Performed: BRIEF HISTORY: Patient is a 55-year-old pleasant male scheduled for an elective colonoscopy as a part of evaluation of recent episode of acute diverticulitis 3 weeks ago. He is doing well now. No abdominal pain. No change in bowel habits. PROCEDURE PERFORMED: Colonoscopy. PREOPERATIVE DIAGNOSIS: Recent episode of acute sigmoid diverticulitis. IV sedation per Anesthesia. PROCEDURE: After informed consent was obtained, the patient, was brought into the endoscopy unit. IV sedation was administered by Anesthesia under continuous monitoring. Digital rectal examination was normal. Initially the Olympus CF-160 flexible video colonoscope was then inserted in the rectum, gradually advanced into the cecum without any difficulty. Careful examination was performed as the scope was gradually being withdrawn. Ileocecal valve and the appendiceal orifice were visualized and appeared normal. Prep was excellent. Mucosa of the cecum, ascending colon, transverse colon, descending colon, sigmoid colon, and rectum appeared normal. Scattered diffuse diverticulosis more prominent in the left colon. Retroflexion was performed in the rectum and no lesions were seen. The patient tolerated the procedure well. IMPRESSION: Scattered diffuse diverticulosis more predominant in the left colon No evidence of colorectal neoplasia RECOMMENDATIONS: Findings of this examination were discussed with the patient as well as his family. He was advised to have a repeat screening colonoscopy in 10 years..
[2020-12-25 11:25] VITALS: BP 136/88; PULSE 80; RESP 17
== END 2020-12-25 11:57 | disposition home or self-care (01) ==
LOC: ORWHC2ENDO 09:50
PROVIDERS: ATTEND Internal Medicine Gastroenterology
DX: K57.30 Diverticulosis of large intestine without perforation or abscess without bleeding (principal)
CPT/HCPCS: 45378; J2001; J2704

== ENCOUNTER → 2022-09-08 | Outpatient (CLI) | payer OTHER ==
--- NOTE | 2022-09-09 09:07 | XR ---
EXAMINATION TYPE: XR elbow complete RT DATE OF EXAM: 09/08/2022 COMPARISON: None HISTORY: Pain, limited range of motion TECHNIQUE: 3 view right elbow FINDINGS: Radius aligns normally with the humerus. Anterior fat-pad is normal. No elevation of oil pipe inspector ior fat pad is present which is normal. Some minimal spurring may be present compatible with mild deg enerative change. No acute osseous abnormality evident. Follow-up exam can be performed 7-10 days fro m acute trauma for continued pain. IMPRESSION: 1. No acute osseous abnormality. 2. Mild degenerative joint change.
== END | disposition home or self-care (01) ==
LOC: RADXRYALE 15:57
PROVIDERS: ATTEND Physician Assistant
DX: M19.021 Primary osteoarthritis, right elbow (principal)

== ENCOUNTER → 2023-02-20 | Outpatient (CLI) | payer OTHER ==
--- NOTE | 2023-02-25 13:49 | MR ---
EXAMINATION TYPE: MR shoulder RT wo con DATE OF EXAM: 02/20/2023 COMPARISON: Radiograph 11/22/2022 HISTORY: 57-year-old male M25.511, Rt shoulder pain, fall TECHNIQUE: Multiplanar, multisequence imaging of the right shoulder is performed without contrast. FINDINGS: Foci of susceptibility artifact at the acromion, probably reflecting prior acromioplasty. Mild degene rative change at the acromioclavicular joint itself with marginal spurring and capsular hypertrophy. The widened appearance of the joint may be postsurgical as well. No significant encroachment onto the underlying myotendinous junction of the supraspinatus. Marked inhomogeneous signal at the junction of the intracapsular and extracapsular portion of the jaclyn g biceps tendon. Some mild intrinsic signal is present within the intracapsular portion. There is a partial articular sided tear of the inferior half subscapularis tendon. Heterogeneous sign al the remainder of the tendon. The majority of the tendon remains intact. Trace fluid tracking along the subscapularis myotendinous junction. Heterogeneous signal of both supraspinatus and infraspinatus tendons. Mild bursal sided fraying of th e supraspinatus. No discrete tear of the liver. No atrophy of the rotator cuff musculature. Moderate thinning of superior humeral head articular cartilage. Some signal within the glenoid labrum along the posterior aspect of the superior labrum. The remainde r of the posterior labrum is blunted and degenerative Some edematous soft tissue thickening in the rotator cuff interval. No Hill-Sachs deformity or os acromiale. Prominent red marrow hyperplasia may be seen in the setting of anemia, obesity, smoking, and chronic disease. IMPRESSION: 1. Diffuse rotator cuff tendinosis. There is an articular sided partial-thickness tear of the inferio r half of the subscapularis tendon. The majority of the tendon remains intact. 2. There is mild bursal sided fraying of the supraspinatus tendon but otherwise without any supraspin atus or infraspinatus tendon tear. 3. Intracapsular long head biceps tendinosis, severe at its junction with the extracapsular portion. 4. Some edematous soft tissue thickening in the rotator interval could represent synovitis or a sprai n of the biceps david. 5. Suspect a small SLAP tear and degenerative blunting of the posterior labrum. Moderate degenerative cartilage thinning along the superior aspect of the humeral head articular surface. 6. Foci of susceptibility artifact along the lateral margin of the acromion and also some widening at the AC joint. Findings suspected to be on a postsurgical basis. Clinically correlate.
== END | disposition home or self-care (01) ==
LOC: RADMRIMAIN 06:04
PROVIDERS: ATTEND Orthopaedic Surgery
DX: M19.011 Primary osteoarthritis, right shoulder (principal); M67.813 Other specified disorders of tendon, right shoulder; M75.111 Incomplete rotator cuff tear or rupture of right shoulder, not specified as traumatic; R60.0 Localized edema

== ENCOUNTER → 2023-07-18 | Outpatient (CLI) | payer OTHER ==
[2023-07-18 15:25] LABS: Basophils # (A) 0.06 X 10*3/uL (0.00-0.10); Basophils % (A) 0.9 %; Eosinophils % (A) 1.5 %; HCT 53.8 % (39.6-50.0); HGB 18.4 g/dL (13.0-17.0); Lymphocytes # (A) 1.89 X 10*3/uL (0.90-5.00); Lymphocytes % (A) 27.9 %; MCH 29.6 pg (27.0-32.0); MCHC 34.2 g/dL (32.0-37.0); MCV 86.6 FL (80.0-97.0); Mean Platelet Volume 10.2 FL (9.5-12.2); Monocytes # (A) 0.59 X 10*3/uL (0.20-1.00); Monocytes % (A) 8.7 %; NRBC Per 100 WBC 0 X 10*3/uL (0.00-0.01); Neutrophils % (A) 60.4 %; Platelet Count 241 X 10*3/uL (140-440); RBC 6.21 X 10*6/uL (4.40-5.60); RDW 12.5 % (11.5-14.5); WBC 6.78 X 10*3/uL (4.50-10.00)
[2023-07-18 15:52] LABS: Anion Gap 9.9 mmol/L (4.00-12.00); Carbon Dioxide 26.1 mmol/L (21.6-31.8); Potassium 4.6 mmol/L (3.5-5.5)
== END | disposition home or self-care (01) ==
LOC: LABWHC1 10:32
PROVIDERS: ATTEND Orthopaedic Surgery
DX: Z01.818 Encounter for other preprocedural examination (principal); M75.41 Impingement syndrome of right shoulder; I44.0 Atrioventricular block, first degree; I45.10 Unspecified right bundle-branch block; R94.31 Abnormal electrocardiogram [ECG] [EKG]
CPT/HCPCS: 36415; 80051; 85025; 93005

== ENCOUNTER 2023-08-09 05:42 | Day surgery (SDC) | payer OTHER ==
[2023-08-04 11:17] VITALS: BMI 29.5
--- NOTE | 2023-08-08 13:56 | HP ---
HISTORY AND PHYSICAL DATE OF SURGERY: 08/09/2023. HISTORY OF PRESENT ILLNESS: Karan Lockett is a 57-year-old patient, seen with progressive left shoulder pain. We discussed options regarding treatment. He elected to proceed with left shoulder arthroscopy. Consent regarding procedure was obtained. PAST MEDICAL HISTORY: Noncontributory. PAST SURGICAL HISTORY: Shoulder arthroscopy and knee arthroscopy. DAILY MEDICATIONS: Naprosyn. ALLERGIES: None. SOCIAL HISTORY: Denies tobacco use. PHYSICAL EVALUATION OF THE LEFT SHOULDER: Flexion is 100 degrees. Abduction is 100 degrees. External rotation is 50 degrees with weakness. He has tenderness along the anterolateral acromion and rotator cuff insertion site. Impingement sign is positive at 80 degrees. Cross-body adduction sign is positive. Drop-arm sign is positive. Distal neurovascular exam is intact. IMAGING STUDIES: Radiographs of left shoulder, type 2 acromion and calcific changes consistent with calcific tendinitis. MRI left shoulder, partial rotator cuff tear. IMPRESSION: 1. Left shoulder impingement with partial rotator cuff tear. 2. Left shoulder calcific tendinitis. PLAN: Left shoulder arthroscopy, subacromial decompression, arthroscopic rotator cuff repair, and debridement. MMODL / IJN: [id number] /
[2023-08-09] MEDS ORDERED: HYDROmorphone 0.5 MG/0.5 ML SYRINGE IVP PRN (06:29)
[2023-08-09] MEDS ORDERED: DEXAMETHASONE SOD PHOSPHATE 4 MG/ML 1 ML VIAL IV ONE (06:29)
[2023-08-09] MEDS ORDERED: ONDANSETRON 4 MG/2 ML VIAL IVP ONE (06:29)
[2023-08-09] MEDS ORDERED: LACTATED RINGERS 1,000 ML IV SCH (06:29)
[2023-08-09] MEDS ORDERED: MIDAZOLAM 2 MG/2 ML VIAL IV PRN (06:29)
[2023-08-09] MEDS ORDERED: LIDOCAINE 1% (10MG/ML) FOR IV START INTRADERMA PRN (06:29)
[2023-08-09] MEDS ORDERED: GLYCOPYRROLATE 0.2 MG/ML 2 ML VIAL ONE (07:22)
[2023-08-09] MEDS ORDERED: LIDOCAINE 1% INJ 10MG/ML (20 ML MDV) ONE (07:22)
[2023-08-09] MEDS ORDERED: PROPOFOL 10 MG/ML 20 ML VIAL IV ONE (07:22)
[2023-08-09] MEDS ORDERED: MIDAZOLAM 2 MG/2 ML VIAL ONE (07:22)
[2023-08-09] MEDS ORDERED: ROCURONIUM 10 MG/ML (5 ML VIAL) IV ONE (07:22)
[2023-08-09] MEDS ORDERED: ROPIVACAINE 5 MG/ML 30 ML VIAL ONE (07:22)
[2023-08-09] MEDS ORDERED: DEXAMETHASONE SOD PHOSPHATE 4 MG/ML 1 ML VIAL ONE (07:22)
[2023-08-09] MEDS ORDERED: SUCCINYLCHOLINE CHLORIDE 200 MG/10 ML VIAL IV ONE (07:22)
[2023-08-09] MEDS ORDERED: NEOSTIGMINE 1 MG/ML 10 ML VIAL ONE (07:22)
[2023-08-09] MEDS ORDERED: ONDANSETRON 4 MG/2 ML VIAL ONE (07:22)
[2023-08-09] MEDS ORDERED: fentaNYL (PF) 50 MCG/ML 2 ML AMP ONE (07:22)
--- NOTE | 2023-08-09 08:12 | P.ANPRN ---
Procedure Note - Anesthesia - Nerve Block Performed Left Interscalene Single Time Out Performed: Yes ([id number]) Date of Procedure: 08/09/23 Procedure Start Time: 07:00 Procedure Stop Time: 07:05 Location of Patient: PreOp Indication: Acute Post-Operative Pain, Requested by Surgeon Sedation Type: Sedate with meaningful contact maintained Preparation: Sterile Prep Position: Sitting Catheter: None Needle Types: Pajunk Needle Gauge: 21 Ultrasound used to visualize needle placement: Yes Ultrasound used to observe medication spread: Yes Injectate: 0.5% Ropivacaine (see comment for volume) (21ML of block solution containing 20 ML of 0.5% ropivacaine mixed with 4 MG of dexamethasone) Blood Aspirated: No Pain Paresthesia on Injection Noted: No Resistance on Injection: Normal Image Stored and Saved: Yes Events: Uneventful and Well Tolerated
[2023-08-09] MEDS ORDERED: LACTATED RINGERS 1,000 ML IV ONE (08:55)
--- NOTE | 2023-08-09 09:28 | P.OP ---
Date of Procedure: 08/09/23 Preoperative Diagnosis: Left shoulder impingement Postoperative Diagnosis: 1. Left shoulder rotator cuff tear 2. Left shoulder bicipital tendinitis 3. Left shoulder impingement 4. 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 Left shoulder superficial labral tear Procedure(s) Performed: 1. Left shoulder arthroscopic rotator cuff repair 2. Left shoulder arthroscopic biceps tenodesis 3. Left shoulder arthroscopic subacromial decompression 4. Left shoulder arthroscopic microfracture humeral head 5. Left shoulder arthroscopic debridement labral tear Implants: 2Arthrex 4.75 swivel lock anchors Anesthesia: GETA, regional (Interscalene block) Surgeon: Peter Loving Template Inspector #1: Zoltan Stallworth Estimated Blood Loss (ml): 10 Pathology: none sent Condition: stable Disposition: PACU Indications for Procedure: 57-year-old patient who was seen with progressive left shoulder pain. After having treatment options discussed, he elected to proceed with arthroscopy. Operative Findings: See description of procedure Description of Procedure: Patient underwent an interscalene block by department of anesthesia. The patient was then taken to the operative suite. The patient underwent a general anesthetic by the department of anesthesia. The patient was placed into a lateral position and secured. There was appropriate padding of the bony prominence. Left shoulder was then prepped and draped in normal sterile orthopedic fashion. We placed the extremity in 10 pounds of longitudinal traction. A posterior incision was now made for a posterior working portal site. The trocar and cannula were inserted into the glenohumeral joint. Arthroscopy was initiated. Spinal needle was now inserted anteriorly, to ascertain the anterior working portal site. An incision was now made in that area, a trocar was inserted followed by a probe. There was hyperemia of the long head biceps tendon consistent with bicipital tendinitis. There was superficial tearing of the anterior, superior and posterior labrum. There was an area of grade 4 chondromalacia of the central portion of the humeral head measuring about 2 x 2 centimeters. At this point I decided to proceed with arthroscopic biceps tenodesis. I introduced a cannula through the anterior portal site. With the assistance of Canelo MENDEZ I passed a loop intact type stitch through the biceps tendon and then released it from the superior anchor. I now punched hole at the area of the interval for insertion of an anchor. The suture limb was passed through the eyelet of a Arthrex 4.75 swivel lock anchor. I now introduced the anchor/eyelet into the pre-punch hole. I held it in position while Zoltan MENDEZ tensioned the suture and the david the anchor with good fixation noted. The residual suture limbs clipped. We had a stable appearing biceps tenodesis. I now debrided out the superficial labral tears getting down to stable labral tissue. I now introduced a microfracture awl and I created a microfracture in that area of the grade 4 chondromalacia of the humeral head penetrating the bone with resultant bleeding at the microfracture site. The residual osteochondral surface was probed and was found to be stable. The residual labrum was stable. At this point instruments were removed from the glenohumeral joint. Utilizing the posterior working portal site, the trocar and cannula were inserted into the subacromial space. Arthroscopy initiated. I made an incision 2 fingerbreadths lateral to the acromion. I introduced my trocar followed by my ArthroCare ablator. I now began ablating thick subacromial bursal tissue, which exposed the undersurface of the anterior acromion. There was diminished subacromial space. There was a very prominent anterior acromion. A motorized bur was introduced and a subacromial decompression was performed. I also excised some osteophytes off the inferior aspect of the distal clavicle. The AC joint was visualized and noted to be moderately arthritic. I did not think enough to warrant a Lea procedure. I turned my attention to the rotator cuff tendon. I didn't out some residual suture from her previous surgery at that I removed. There was a tear through the distal supraspinatus measuring about 1 cm. I debrided the margins getting down to stable tendon tissue. The defect/tear now measured about 1.5 cm and was freely mobile over the footprint. I abraded the footprint with a motorized bur. I passed 2 everted mattress sutures through good bites of rotator cuff tendon. I punched the hole and the area of the footprint for insertion of an anchor. All 4 limbs of suture were passed through the eyelet of an Arthrex 4.75 swivel lock anchor. I placed the eyelet into our pre-punch hole. I held in position while Zoltan MENDEZ tensioned all the suture limbs and deployed the anchor with good fixation noted. All residual suture limbs were now clipped. We had good compression of the tendon along the entire footprint. Instruments now removed from the portal sites. All portal sites were approximated with nylon suture. Sterile dressings were applied followed by a shoulder sling. Zoltan MENDEZ assisted in this complex case. The patient was awakened, transferred to a bed, and taken to recovery in stable condition.
[2023-08-09 09:31] VITALS: TEMP 97
[2023-08-09 10:41] VITALS: BP 132/85; PULSE 72; RESP 15
== END 2023-08-09 11:09 | disposition home or self-care (01) ==
LOC: OR 05:42
PROVIDERS: ATTEND Orthopaedic Surgery
DX: M75.102 Unspecified rotator cuff tear or rupture of left shoulder, not specified as traumatic (principal); M75.42 Impingement syndrome of left shoulder; M75.22 Bicipital tendinitis, left shoulder; M75.32 Calcific tendinitis of left shoulder; M94.212 Chondromalacia, left shoulder; Z98.890 Other specified postprocedural states
CPT/HCPCS: 64415; 29828; 29826; 29824; 29827; C1713 ×2; J2250; J0330; J1100; J2710; J0690; J2405; J2001; J3010; J2795; J2704

== ENCOUNTER 2023-11-25 11:48 | Emergency (ER) | payer OTHER ==
[2023-11-25 12:18] VITALS: PULSE 71
[2023-11-25] MEDS: KETOROLAC 15 MG/ML 1 ML VIAL IVP STA (13:06)
[2023-11-25] MEDS: ORPHENADRINE 30 MG/ML 2 ML VIAL IVP STA (13:08)
[2023-11-25] MEDS: LIDOCAINE 4% PATCH TOPICAL ONE (13:09)
--- NOTE | 2023-11-25 13:46 | XR ---
Lumbar spine HISTORY: Back pain. No trauma. COMPARISON: None. TECHNIQUE: 5 views of the lumbar spine were obtained. FINDINGS: On the lateral view, the lumbar vertebral segments are normal in height and there is no evidence of f racture. There is a slight retrolisthesis of L5 on S1. The disc spaces are well-maintained in height from L1 through L5 but there is mild degenerative disc disease as evidenced by mild spondylosis. There is moderate degenerative disease at the L5-S1 level where there is moderate disc space narrowin g, marked stenosis discogenic endplate changes. There is sclerosis of the facet joints from L3 through S1. There is no spondylolysis. There is partial visualization of the superior aspect of the sacrum and SI joints and sacroiliitis on the right is suspected. IMPRESSION: 1. No lumbar spine fracture. 2. Moderate degenerative disease at the L5-S1 level slight retrolisthesis of L5 and S1. 3. Facet arthropathy from L3 through S1. 4. Possible right sacroiliitis
--- NOTE | 2023-11-25 14:17 | ED ---
General Adult HPI - General Chief complaint: Back Pain/Injury Stated complaint: BACK PAIN Time Seen by Provider: 11/25/23 12:07 Source: patient, family, RN notes reviewed Mode of arrival: wheelchair Limitations: no limitations - History of Present Illness Initial comments: 58-year-old male presents to the emergency department for evaluation of low back pain. He states that this started around 6 days ago. He reports seeing his primary care provider for this on Monday. He was given a shot of steroids in his legs. He notes that he has been on a prednisone taper since then. He states that his pain is getting worse. He notes that is difficult for him to get up from lying down. He states that the pain radiates slightly into his buttocks. He denies loss of bowel or bladder function, urinary retention, saddle anesthesia. Denies recent fever, chills. He denies radiation of pain down legs, denies numbness, tingling. - Related Data Previous Rx's Medication Instructions Recorded HYDROcodone/APAP 7.5-325MG [[place] 1 tab PO Q6HR PRN #28 tab 08/09/23 7.5-325] HYDROcodone/APAP 5-325MG [[place] 1 tab PO Q6HR PRN 3 Days #12 tab 11/25/23 5-325] Lidocaine 5% Patch [Lidoderm 5% 1 patch TOPICAL DAILY #30 patch 11/25/23 Patch] Allergies Allergy/AdvReac Type Severity Reaction Status Date / Time No Known Allergies Allergy Verified 11/25/23 12:04 Review of Systems ROS Statement: Those systems with pertinent positive or pertinent negative responses have been documented in the HPI. ROS Other: All systems not noted in ROS Statement are negative. Past Medical History Past Medical History: Hyperlipidemia Additional Past Medical History / Comment(s): recent hospitalization 11/09 to 11/11/20 with abdominal pain ? diverticulitis. History of Any Multi-Drug Resistant Organisms: None Reported Past Surgical History: Joint Replacement, Orthopedic Surgery Additional Past Surgical History / Comment(s): analia knee arthroscopy surgery, rt & left rotator cuff,Total left knee, colonoscopy Past Anesthesia/Blood Transfusion Reactions: Motion Sickness, Postoperative Nausea & Vomiting (PONV) Past Psychological History: No Psychological Hx Reported Smoking Status: Never smoker Past Alcohol Use History: Occasional Past Drug Use History: None Reported - Past Family History Brother(s) Family Medical History: Cancer Additional Family Medical History / Comment(s): leukemia General Exam Limitations: no limitations General appearance: alert, in no apparent distress Head exam: Present: atraumatic, normocephalic, normal inspection Eye exam: Present: normal appearance, PERRL, EOMI. Absent: scleral icterus, conjunctival injection, periorbital swelling ENT exam: Present: normal exam, mucous membranes moist Respiratory exam: Present: normal lung sounds bilaterally. Absent: respiratory distress, wheezes, rales, rhonchi, stridor Cardiovascular Exam: Present: regular rate, normal rhythm, normal heart sounds. Absent: systolic murmur, diastolic murmur, rubs, gallop, clicks GI/Abdominal exam: Present: soft, normal bowel sounds. Absent: distended, tenderness, guarding, rebound, rigid Extremities exam: Present: normal inspection, full ROM, normal capillary refill. Absent: tenderness, pedal edema, joint swelling, calf tenderness Back exam: Present: full ROM, tenderness (Tenderness over the SI joints bilaterally) Neurological exam: Present: alert, oriented X3, CN II-XII intact Psychiatric exam: Present: normal affect, normal mood Skin exam: Present: warm, dry, intact, normal color. Absent: rash Course Vital Signs 11/25/23 11/25/23 11/25/23 12:01 14:38 14:54 Temperature 98.1 F 98.4 F Pulse Rate 71 71 Respiratory 20 18 Rate Blood Pressure 160/76 117/72 O2 Sat by Pulse 97 95 Oximetry Medical Decision Making - Medical Decision Making Was pt. sent in by a medical professional or institution (, PA, RESIDENT BUYER, urgent care, hospital, or assisted...) When possible be specific @ -No Did you speak to anyone other than the patient for history (EMS, parent, family, police, friend...)? What history was obtained from this source @ -No Did you review nursing and triage notes (agree or disagree)? Why? @ -I reviewed and agree with nursing and triage notes Were old charts reviewed (outside hosp., previous admission, EMS record, old EKG, old radiological studies, urgent care reports/EKG's, assisted records)? Report findings @ -No old charts were reviewed Differential Diagnosis (chest pain, altered mental status, abdominal pain women, abdominal pain men, vaginal bleeding, weakness, fever, dyspnea, syncope, headache, dizziness, GI bleed, back pain, seizure, CVA, palpatations, mental health, musculoskeletal)? @ -Differential Back Pain: Strain, zoster, cauda equina syndrome, epidural abscess, vertebral osteomyelitis, discitis, fracture, subluxation, disc herniation, DJD, spinal stenosis, dissection, AAA, pancreatitis, peptic ulcer disease, pyelonephritis, kidney stone, this is not meant to be an all-inclusive list. EKG interpreted by me (3pts min.). @ -None X-rays interpreted by me (1pt min.). @ -X-ray of the lumbar spine shows no acute fracture, moderate degenerative disc disease, possible sacroiliitis on the right CT interpreted by me (1pt min.). @ -None done U/S interpreted by me (1pt. min.). @ -None done What testing was considered but not performed or refused? (CT, X-rays, U/S, labs)? Why? @ -None What meds were considered but not given or refused? Why? @ -None Did you discuss the management of the patient with other professionals (professionals i.e. , PA, RESIDENT BUYER, lab, RT, psych nurse, social work instructor, panel maker, teacher, chief fundraising officer, correctional counselor/case manager)? Give summary @ -No Was smoking cessation discussed for >3mins.? @ -No Was critical care preformed (if so, how long)? @ -No Were there social determinants of health that impacted care today? How? (Homelessness, low income, unemployed, alcoholism, drug addiction, transportation, low edu. Level, literacy, decrease access to med. care, care home, rehab)? @ -No Was there de-escalation of care discussed even if they declined (Discuss DNR or withdrawal of care, Hospice)? DNR status @ -No What co-morbidities impacted this encounter? (DM, HTN, Smoking, COPD, CAD, Cancer, CVA, ARF, Chemo, Hep., AIDS, mental health diagnosis, sleep apnea, morbid obesity)? @ -None Was patient admitted / discharged? Hospital course, mention meds given and route, prescriptions, significant lab abnormalities, going to OR and other pertinent info. @ -Discharge. Patient presented to the emergency department for evaluation of back pain. Patient underwent x-rays to the ED. Patient does not have any red flag symptoms at this time. X-ray of the lumbar spine shows no evidence of acute fracture, moderate degenerative disc disease, possible sacroiliitis on the right. Patient is currently on steroids. Patient provided medication for pain control in the ED. patient also provided medication for pain control for 3 days along with lidocaine patches. He was advised to follow-up with orthopedics. Patient is understanding and agreeable with this plan. Patient stable at time of discharge. Case discussed with Dr. Mart. Undiagnosed new problem with uncertain prognosis? @ -No Drug Therapy requiring intensive monitoring for toxicity (Heparin, Nitro, Insulin, Cardizem)? @ -No Were any procedures done? @ -No Diagnosis/symptom? @ -Sacroiliitis Acute, or Chronic, or Acute on Chronic? @ -Acute Uncomplicated (without systemic symptoms) or Complicated (systemic symptoms)? @ -Uncomplicated Side effects of treatment? @ -No Exacerbation, Progression, or Severe Exacerbation? @ -No Poses a threat to life or bodily function? How? (Chest pain, [place], [place], pneumonia, PE, COPD, DKA, ARF, appy, cholecystitis, CVA, Diverticulitis, Homicidal, Suicidal, threat to staff... and all critical care pts) @ -No Disposition Clinical Impression: Sacroiliitis, Back pain Disposition: HOME SELF-CARE Condition: Stable Instructions (If sedation given, give patient instructions): Acute Low Back Pain (ED), Sacroiliitis (ED) Additional Instructions: Please follow up with your primary care provider and orthopedics. Utilize dry heat and gentle stretching. Continue your steroid, once this is completed you may start taking your naproxen again. Prescriptions: Lidocaine 5% Patch [Lidoderm 5% Patch] 1 patch TOPICAL DAILY #30 patch HYDROcodone/APAP 5-325MG [[place] 5-325] 1 tab PO Q6HR PRN 3 Days #12 tab PRN Reason: Pain Is patient prescribed a controlled substance at d/c from ED?: No Referrals: Jamshid Hobbs DO [Primary Care Provider] - 1-2 days Dorian Goodson MD [Medical Doctor] - 1-2 days
[2023-11-25] MEDS: HYDROmorphone 0.5 MG/0.5 ML SYRINGE IVP STA (14:40)
[2023-11-25 15:06] VITALS: BP 117/72; RESP 18; TEMP 98.4
== END 2023-11-25 15:01 | disposition home or self-care (01) ==
LOC: EC 11:48
DX: M46.1 Sacroiliitis, not elsewhere classified (principal)
CPT/HCPCS: 99283 ×2; 96374 ×2; 96375 ×3; 72110; J2360; J1885; J1170

== ENCOUNTER → 2024-01-11 | Outpatient (CLI) | payer OTHER ==
--- NOTE | 2024-01-14 21:46 | MR ---
EXAMINATION TYPE: MR lumbar spine wo con DATE OF EXAM: 01/11/2024 COMPARISON: None HISTORY: 58-year-old male M54.50, Low back pain into rt lower extremity TECHNIQUE: Multiplanar, multisequence images of the lumbar spine were acquired without IV contrast. FINDINGS: There is straightening of the normal lumbar lordosis. Vertebral body heights are preserved. Conus medullaris is normal. Facet arthropathy mid and lower lumbar spine. Degenerative grade 1 retrolisthesis L4-L5. There is fatty Modic type II endplate change at L4-L5 and L5-S1 and mild Modic type I endplate change anteriorly at L1-L2. Moderate degenerative disc disease L4-L5 and L5-S1 with desiccated, narrowed, and bulging discs. Diminished marrow signal suggesting red marrow hyperplasia which can be seen in the setting of anemia , obesity, smoking, chronic disease. At T12-L1, no canal or foraminal stenosis. At L1-L2, no canal or foraminal stenosis. At L2-L3, mild disc bulge impressing on the ventral thecal sac without significant canal or foraminal stenosis. At L3-L4, diffuse disc bulge and hypertrophic facet arthropathy. Changes result in mild spinal canal stenosis without significant neuroforaminal stenosis. At L4-L5, there is diffuse disc bulge with facet arthropathy and grade 1 retrolisthesis. There is a s uperimposed right paracentral disc extrusion. This impinges the right lateral recess and probably the traversing right L5 nerve root. There is also abutment of the traversing left-sided cauda equina ner ve roots due to the size of the disc herniation. Mild spinal canal stenosis. Adrw-yn-srpekahc bilater al neuroforaminal stenosis. At L5-S1, facet arthropathy and disc osteophyte complex projecting off to the sides. Changes result i n moderate to severe left and mild right neural foraminal stenosis. Suspect impingement of the extraf oraminal left L5 nerve root from the disc osteophyte complex. No spinal canal stenosis. No prevertebral or paravertebral soft tissue antibody. IMPRESSION: 1. Straightening of the normal lumbar lordosis. Facet arthropathy and moderate degenerative disc dise ase lower lumbar spine. Degenerative grade 1 retrolisthesis L4-L5. 2. At L4-L5, there is diffuse disc bulge with superimposed right paracentral disc extrusion. This her niation impinges the right lateral recess and also abuts left-sided cauda equina nerve roots. Mild ov erall spinal canal stenosis here. Grrx-ic-kzspicvl bilateral neuroforaminal stenosis at this level. 3. Disc osteophyte complex projecting to either side at L5-S1 resulting in moderate to severe left an d mild right neural foraminal stenosis. There may be impingement of the extraforaminal left L5 nerve root due to the disc osteophyte complex. 4. Additional mild spinal canal stenosis at L3-L4.
== END | disposition home or self-care (01) ==
LOC: RADMRIMAIN 13:11
PROVIDERS: ATTEND Orthopaedic Surgery Orthopaedic Surgery of the Spine
DX: M47.26 Other spondylosis with radiculopathy, lumbar region (principal); M51.16 Intervertebral disc disorders with radiculopathy, lumbar region; M43.16 Spondylolisthesis, lumbar region; M48.061 Spinal stenosis, lumbar region without neurogenic claudication; M25.78 Osteophyte, vertebrae; M51.26 Other intervertebral disc displacement, lumbar region; M40.46 Postural lordosis, lumbar region; M99.73 Connective tissue and disc stenosis of intervertebral foramina of lumbar region; M62.830 Muscle spasm of back; S39.012D Strain of muscle, fascia and tendon of lower back, subsequent encounter; X58.XXXD Exposure to other specified factors, subsequent encounter
CPT/HCPCS: 72148

== ENCOUNTER → 2024-03-11 | Outpatient (CLI) | payer OTHER | END | disposition home or self-care (01) | LOC: LABPAT 11:31 | PROVIDERS: ATTEND Orthopaedic Surgery Orthopaedic Surgery of the Spine | DX: Z01.812 Encounter for preprocedural laboratory examination (principal) | CPT/HCPCS: 86850; 86900; 86901 ==

== ENCOUNTER → 2024-03-11 | Outpatient (CLI) | payer OTHER ==
--- NOTE | 2024-03-11 10:07 | XR ---
EXAMINATION TYPE: XR chest 2V DATE OF EXAM: 03/11/2024 10:02 AM CLINICAL INDICATION:Male, 58 years old with history of [id number] PRE OP; COMPARISON: Chest radiographs from 09/13/2010 TECHNIQUE: XR chest 2V Frontal view of the chest. FINDINGS: Lungs/Pleura: There is no evidence of pleural effusion, focal consolidation, or pneumothorax. Pulmonary vascularity: Unremarkable. Heart/mediastinum: Cardiomediastinal silhouette is unremarkable. Musculoskeletal: No acute osseous pathology. IMPRESSION: No acute cardiopulmonary disease/process.
== END | disposition home or self-care (01) ==
LOC: RADXRYALE 09:34
PROVIDERS: ATTEND Family Medicine
DX: Z01.812 Encounter for preprocedural laboratory examination (principal)
CPT/HCPCS: 71046

== ENCOUNTER 2024-04-03 05:40 | Observation (INO) | payer OTHER ==
[~2024-04-03 05:40] MED LIST changes: -LACTATED RINGERS 1,000 ML IV SCH; +LIDOCAINE 1% (10MG/ML) FOR IV START INTRADERMA PRN
[2024-04-03] MEDS: IV FLUID CONTINUATION 1,000 ML IV ONE (06:19)
[2024-04-03] MEDS: LACTATED RINGERS 1,000 ML IV SCH (06:35)
[2024-04-03] MEDS: SCOPOLAMINE 1 MG/72 HR PATCH TRANSDERM STA (06:38)
[2024-04-03] MEDS: ONDANSETRON 4 MG/2 ML VIAL IVP ONE (06:39)
[2024-04-03] MEDS: MIDAZOLAM 2 MG/2 ML VIAL IV ONE (06:44)
[2024-04-03 06:47] LABS: Glucose,Whole Blood 119 mg/dL (70-110)
[2024-04-03] MEDS ORDERED: HYDROmorphone (PF) 1 MG/ML ONE (07:31)
[2024-04-03] MEDS ORDERED: LIDOCAINE 1% INJ 10MG/ML (20 ML MDV) ONE (07:31)
[2024-04-03] MEDS ORDERED: GLYCOPYRROLATE 0.2 MG/ML 2 ML VIAL ONE (07:31)
[2024-04-03] MEDS ORDERED: MIDAZOLAM 2 MG/2 ML VIAL ONE (07:31)
[2024-04-03] MEDS ORDERED: KETAMINE HCL IN 0.9 % NACL 50 MG/5 ML SYRINGE ONE (07:31)
[2024-04-03] MEDS ORDERED: fentaNYL (PF) 50 MCG/ML 2 ML AMP ONE (07:31)
[2024-04-03] MEDS ORDERED: PROPOFOL 10 MG/ML 20 ML VIAL IV ONE (07:31)
[2024-04-03] MEDS ORDERED: ROCURONIUM 10 MG/ML (5 ML VIAL) IV ONE (07:31)
[2024-04-03] MEDS ORDERED: NEOSTIGMINE 1 MG/ML 10 ML VIAL ONE (07:31)
[2024-04-03] MEDS: THROMBIN (BOVINE) 5,000 UNIT VIAL TOPICAL ONE (07:34)
[2024-04-03] MEDS: LIDOCAINE 1%-EPI 1:100,000 20 ML VIAL SQ ONE (07:34)
[2024-04-03] MEDS: ceFAZolin 1,000 MG in SODIUM CHLORIDE 0.9% IRRIGATIO 1,000 ML IRRIGATION PRN (08:16)
--- NOTE | 2024-04-03 10:20 | FL ---
EXAMINATION TYPE: FL guidance operating room, XR lumbar spine 2 or 3V Intraoperative/procedural fluor oscopic services were provided. Total fluoroscopy time is 1 minute 33 seconds with a total of 5 submi tted images to PACS. Please see the operative/procedural note for further details. DAP: 39.11 mGym2 Gycm2 uGym2 cGycm2
[2024-04-03] MEDS ORDERED: ACETAMINOPHEN TAB 325 MG TAB PO PRN (10:41)
[2024-04-03] MEDS ORDERED: HYDROmorphone 1 MG/ML 1 ML SYRINGE IVP PRN (10:41)
[2024-04-03] MEDS ORDERED: BENZOCAINE/MENTHOL LOZENG 1 EACH LOZENGE MUCOUS MEM PRN (10:41)
--- NOTE | 2024-04-03 10:49 | P.OP ---
Date of Procedure: 04/03/24 Preoperative Diagnosis: Herniated nucleus pulposus L4-5, retrolisthesis L4-5, spinal stenosis L4-5, lower extreme radiculopathy, lower extremity weakness, low back pain Postoperative Diagnosis: Same Anesthesia: GETA Pathology: none sent Condition: stable Disposition: PACU Description of Procedure: DESCRIPTION OF PROCEDURE(S): BRIEF OPERATIVE NOTE Preoperative Diagnosis: Herniated nucleus pulposus L4-5, retrolisthesis L4-5, spinal stenosis L4-5, lower extreme radiculopathy, lower extremity weakness, low back pain Postoperative Diagnosis:Herniated nucleus pulposus L4-5, retrolisthesis L4-5, spinal stenosis L4-5, lower extreme radiculopathy, lower extremity weakness, low back pain Procedure: Laminectomy and decompression L4-5 with wide foraminotomy and facetectomy on the right Minimally invasive Posterior lateral decompression and fusion L4-5 Minimally invasive Transforaminal lumbar interbody fusion for a 360 fusion L4-5 Discectomy for decompression L4-5 Placement of interbody graft L4-5 Local autogenous bone grafting Harvesting of bone marrow aspirate via the pedicle of L5 on the right Biplanar fluoroscopic C-arm guidance throughout the case with 93 seconds of fluoroscopic time Use of Cell Saver Use of bone graft extenders Surgeon: Dr. 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 OPERATIVE INDICATIONS The patient has had severe issues in their lower back and lower extremities acutely down his right lower extremity where he has had weakness and severe pain which has been incapacitating and affecting all of his activities and even his rest.. The patient has been through conservative treatment. He was found to have a large disc herniation at L4-5 with retrolisthesis L4-5. He had severe stenosis and this correlated well with his low back and lower extremity symptoms. He did not have any relief despite aggressive conservative care. He continued have significant debility and we discussed surgical options and other treatment options. We discussed various treatment options including surgery, and the patient wishes to proceed with surgery We discussed the risk, patient's alternatives and benefits of surgery including but not limited to, risk of bleeding risk of infection, risk of need for further surgery, risk of decreased, loss of motion, muscle function, malunion nonunion, hardware failure, nerve damage, paralysis, heart attack, blindness and . OPERATIVE SUMMARY After discussing all the risks, patient alternatives and benefits at length, the patient elected to proceed with surgical intervention, signed informed consent, and presented for their procedure. The patient was seen and examined in the preoperative holding area and the surgical site was marked. The patient was given antibiotics and brought to the operating room. The patient was sedated and intubated by anesthesia in standard fashion. The patient was positioned on to the operating room table in a prone position on the appropriate frame which was well-padded and well molded. We were careful to pad any bony prominences and pressure points. We were careful to maintain the patient's cervical spine and good neutral alignment and position throughout. The patient was prepped and draped in a normal standard fashion. An appropriate timeout and keystone protocol performed. We were able to proceed with the surgery. The local wound area was infiltrated with local anesthetic. I was able utilize C-arm guidance to establish appropriate position over the pedicles bilaterally at the appropriate levels at L4-5 bilaterally. With the appropriate levels confirmed was able to make small stab incisions over the appropriate pedicle sites bilaterally. Utilizing C-arm in his house able to establish a Jamshidi needle over the lateral aspect of the pedicle and advanced the trocar into the pedicle being careful not to breech superiorly inferiorly medially or laterally. Position was confirmed regularly with AP and lateral images on C-arm. I was able to establish the trocar into the pedicle appropriately into the posterior aspect of the vertebral body bilaterally at the appropriate levels. This was done at each of the pedicle positions and each of the vertebrae at L4 and L5 bilaterally. I was able place the guidewire into the trocar and into the vertebral body appropriately under C-arm guidance. Dissection was taken down over the wire to the appropriate starting position for the screw placed. The appropriate length screw was chosen, threaded over the guidewire and screwed appropriately into the pedicle and vertebral body under C- arm guidance in excellent alignment and position with good bony purchase. This is done at each of the screw sites at the appropriate levels of L4 and L5. With the screws intact I extended the incision to connect the screw hole sites on the most symptomatic side on the right. I dissected down to establish access over the pars and lamina to the base of the spinous process. I was able to expose the facet joint. The capsule the facet was taken down and showed some facet arthrosis at the joint. At L4-5 I was able to use a combination of curettes and Kerrison rongeurs and a high-speed drill to take down the facet joint and do a facetectomy. Partial laminectomy was also performed. I was able get excellent foraminal decompression and central decompression with undermining across midline to perform a laminectomy centrally and contralaterally. As able get good central decompression. The ligamentum flavum was taken down to further decompress centrally and at bilateral neural foramen. I was able to expose the disc space and visualize the traversing nerve root. Note was made of essentially massive disc protrusion with extruded fragment at the level causing further compression of the nerve root and distortion at the traversing nerve root. I was able to establish a annulotomy at the appropriate level protecting soft tissue and neural structures. Note was made of some disc desiccation at the disc. I performed a complete discectomy with accommodation of curettes and rasps and scrapers. Discectomy was performed for decompression as well as for preparation for fusion I was able get good endplate preparation at the disc space. I sized for the appropriate size interbody spacer protecting the soft tissue and neural structures. The wound was copiously irrigated and suctioned dry. There is no evidence of any dural tear or leak. I was able to pack the disc space with local autogenous bone graft as well as a small amount of bone graft which was also placed into the interbody cage itself. Protecting the soft tissue structures and neural structures I was able place the interbody expandable cage under C-arm guidance to appropriate expansion and fill in good alignment and good position with good fit and fill at the interbody space. His issues was confirmed with C-arm guidance. Good hemostasis maintained. There is no evidence of any dural tear or leak. The wound was irrigated and suctioned dry. With the hardware intact, intraoperative C-arm imaging was again taken which showed good alignment and position of the hardware at the appropriate levels at L4-5. We were then able to measure, contour and place the rods and appropriate hardware bilaterally. I was able to place capcrews, tighten them down, and torque them with the torque screwdriver appropriately. With this intact I was able to place the local autogenous bone graft with additional bone graft enhancer as necessary into the posterior lateral gutters over the decorticated transverse processes. The remainder of the bone graft was placed over the facet joint on the contralateral side after taking down the facet joint capsule. With the bone graft intact, a stable construct, and good decompression at the appropriate levels, we were able to proceed with closure. Good hemostasis was maintained. There is no evidence of dural tear or leak. The fascia was closed for a watertight closure. he subcuticular tissue was closed with absorbable suture. The wound was cleaned and dried and dressed with the appropriate dressing. The drapes were broken down. The patient was gently rolled back onto their hospital bed being careful to maintain their cervical spine and good neutral alignment and position. They were woken up by anesthesia, extubated, and brought to the recovery room in good stable condition. The patient will be admitted to the hospital for appropriate postoperative care, medical management and monitoring. We will continue to follow them closely about the postoperative course.
[2024-04-03] MEDS: HYDROmorphone 0.5 MG/0.5 ML SYRINGE IVP PRN ×2 (10:58→14:20)
[2024-04-03] MEDS: LACTATED RINGERS 1,000 ML IV ONE (11:49)
[2024-04-03] MEDS: SODIUM CHLORIDE 0.9% 1,000 ML IV SCH (13:26)
[2024-04-03] MEDS: HYDROcodone/APAP 5-325MG 1 EACH TAB PO PRN (16:17)
[2024-04-03] MEDS: CYCLOBENZAPRINE 10 MG TAB PO PRN (20:53)
[2024-04-04] MEDS: ONDANSETRON 4 MG/2 ML VIAL IVP PRN (01:10)
[2024-04-04] MEDS: HYDROcodone/APAP 7.5-325MG 1 EACH TAB PO PRN (03:50)
[2024-04-04] MEDS: SENNOSIDES-DOCUSATE SODIUM 1 EACH TAB PO SCH (08:01)
[2024-04-04] MEDS ORDERED: NON FORMULARY DRUG (Omega-3/Dha/Epa/Fish Oil [Fish Oil 1,000 Mg Softgel] 1 EACH Capsule) PO SCH (09:00)
[2024-04-04] MEDS: NIACIN TR 500 MG CAPLET PO SCH (09:04)
[2024-04-04] MEDS ORDERED: HYDROcodone/APAP 7.5-325MG 1 EACH TAB PO PRN (09:09)
--- NOTE | 2024-04-04 09:11 | P.PN ---
Progress Note - Text Progress Note Date: 04/04/24 Postoperative day #1 Patient is seen and examined today at bedside. The patient has some pain around the surgical site as expected. Pain is being controlled with medication. He is very happy with how his right leg feels. He has had significant improvement in his right lower extreme radiculopathy. He has been able to mobilize in his room and is doing nicely with physical therapy. He is voiding freely but he has not yet had a bowel movement. He is tolerating his regular diet Physical Exam Afebrile with stable vital signs Abdomen is soft nontender. Chest has good excursion deep and space expiration The incision site is clean dry and intact. No erythema there is no purulence. Extremities have not had neurologic change from prior to surgery. He is ambulating well but still has some weakness in his right leg Calves and thighs were soft nontender without evidence of DVT. Assessment/Plan Postoperative day #1 status post minimally invasive decompression fusion L4-5 for his disc herniation with listhesis and lower extremity weakness Patient is progressing as expected from the surgery. He is doing very nicely in terms of his radiculopathy and pain. His back incision is healing nicely We will continue to increase the patient's mobilization with therapy. We will continue pain control with oral or IV medications. He takes [place] 7.5 at home and we will continue the 7.5 as it seems to work better for him. If he keeps continue to manage she may be able to discharge home tomorrow or Monday. We'll continue to follow patient closely.
[2024-04-04 10:42] LABS: Basophils # (A) 0.06 X 10*3/uL (0.00-0.10); Basophils % (A) 0.4 %; Eosinophils # (A) 0.03 X 10*3/uL (0.04-0.35); Eosinophils % (A) 0.2 %; HCT 45.5 % (39.6-50.0); HGB 16.1 g/dL (13.0-17.0); Lymphocytes # (A) 2.16 X 10*3/uL (0.90-5.00); Lymphocytes % (A) 15.9 %; MCHC 35.4 g/dL (32.0-37.0); MCV 87.7 FL (80.0-97.0); Mean Platelet Volume 10.4 FL (9.5-12.2); Monocytes # (A) 1.47 X 10*3/uL (0.20-1.00); Monocytes % (A) 10.8 %; NRBC Per 100 WBC 0 X 10*3/uL (0.00-0.01); Neutrophils % (A) 72.2 %; Platelet Count 237 X 10*3/uL (140-440); RBC 5.19 X 10*6/uL (4.40-5.60); RDW 12.5 % (11.5-14.5); WBC 13.59 X 10*3/uL (4.50-10.00)
[2024-04-04 10:52] LABS: Blood Urea Nitrogen 8.4 mg/dL (9.0-27.0); Calcium 8.3 mg/dL (8.7-10.3); Chloride 102 mmol/L (96-109); Glucose 111 mg/dL (70-110); Potassium 4.2 mmol/L (3.5-5.5); Sodium 137 mmol/L (135-145)
--- NOTE | 2024-04-05 07:54 | P.DS ---
Providers Date of admission: 04/04/24 14:10 Attending physician: Yaya Bashir Primary care physician: [facility] Course: The patient presented on the day of admission as per their operative note. He underwent decompression fusion L4-5 for his right lower EXTR radiculopathy with large disc [place] at L4-5 with listhesis. His leg symptoms improved significantly but he still having some residual symptoms on the right side. He has been up moving around but he has not yet had a bowel movement. His pain is better controlled with the [place] 7.5. Physical Exam The incision site is clean dry and intact. There is no erythema no drainage. There is no purulence no evidence of infection. His back appears to be clear Abdomen soft and nontender. There is no distention Chest has good excursion with deep inspiration and expiration. The patient has active and passive range of motion intact at the upper and lower extremities. There is no acute change in neurologic status. He has sustained dorsiflexion plantarflexion EHL hip flexion knee extension bilaterally postoperative day #2 status post minimally invasive decompression fusion Hospital Course L4-5 for his large disc herniation with retrolisthesis and lower extreme radiculopathy the patient has been making good progress postoperatively. They have completed the prophylactic antibiotics without any signs or symptoms of infection. The patient has been able to advance their diet, and is tolerating diet adequately. The pain was initially controlled with IV medications and is now controlled appropriately with oral medications. The patient has been able to increase their mobilization. The patient has not yet had a bowel movement. He feels constipated. He does not have any abdominal distention. He feels that he will be ready to go and is passing little bit of gas. I would like him to have a regular bowel movement before discharge home. If he is able to do so and he is comfortable with discharge home he may possibly go home today. Otherwise we will keep him overnight to continue to monitor and progress. The patient has progressed appropriately. I think they are in good stable condition for discharge once he is able to have an adequate bowel movement. They will be sent home with appropriate prescriptions. I answered their questions to the best of my ability in a language that they can understand and they are agreeable with the plan. They will follow up as directed. Patient Condition at Discharge: Fair Plan - Discharge Summary Discharge Rx Participant: Yes New Discharge Prescriptions: No Action HYDROcodone/APAP 7.5-325MG [[place] 7.5-325] 1 tab PO Q6HR PRN #28 tab PRN Reason: Pain [place]-3/Dha/Epa/Fish Oil [Fish Oil 1,000 mg Softgel] 1 tab PO DAILY Niacin 1 tab PO DAILY Discharge Medication List HYDROcodone/APAP 7.5-325MG [[place] 7.5-325] 1 tab PO Q6HR PRN #28 tab 08/09/23 [Rx] Niacin 1 tab PO DAILY 03/18/24 [History] [place]-3/Dha/Epa/Fish Oil [Fish Oil 1,000 mg Softgel] 1 tab PO DAILY 03/18/24 [History] Follow up Appointment(s)/Referral(s): Yaya Bashir DO [Doctor of Osteopathic Medicine] - 2 Weeks Activity/Diet/Wound Care/Special Instructions: Keep site clean. May shower with waterproof Tegaderm intact. Do not soak in a tub. After 72 hours postoperatively, patient May remove dressing and then may shower with area uncovered. Leave glue intact and allow it to fray off on its own. May ambulate as tolerated. Avoid heavy or rigorous activity. No repetitive bending twisting or lifting. No overhead work. Discharge Disposition: HOME SELF-CARE
[2024-04-05] MEDS: SENNOSIDES-DOCUSATE SODIUM 1 EACH TAB PO PRN (17:13)
[2024-04-06] MEDS: diazePAM 5 MG TAB PO PRN (01:55)
[2024-04-06 08:19] VITALS: RESP 18
[2024-04-06] MEDS: diphenhydrAMINE 25 MG CAP PO STA (10:04)
--- NOTE | 2024-04-06 10:24 | P.DS ---
Providers Date of admission: 04/04/24 14:10 Attending physician: Yaya Bashir Primary care physician: [facility] Course: The patient presented on the day of admission as per their operative note. He underwent minimally invasive decompression fusion L4-5 for his severe stenosis with large disc herniation and retrolisthesis and lower extreme radiculopathy. He is doing well in terms of his back and his lower extremities. He has still not had a bowel movement. This morning he had a rash over his arms towards his chest and felt hot. He denies any new change or new other problems. The issues seem short-lived and resolving he did receive Benadryl. The only new medicine he received was Valium at about 2 AM. He denied any prior allergies. He denies any chest pain shortness of breath. He denies any wheezing. Denies any tightness in his chest Physical Exam The incision site is clean dry and intact. There is no erythema no drainage. There is no purulence no evidence of infection. The area is clean and dry without any drainage or purulence or erythema Abdomen soft and nontender. There may be some mild distention. Chest has good excursion with deep inspiration and expiration. The patient has active and passive range of motion intact at the upper and lower extremities. There is no acute change in neurologic status. He has sustained dorsiflexion plantarflexion EHL At his skin he has diffuse rash and small hives over his forearms and under arms. He has some diffuse erythema over his chest and face. Hospital Course The patient has been making progress postoperatively in terms of his back and his mobility. They have completed the prophylactic antibiotics without any signs or symptoms of infection. This morning the patient has a rash of uncertain etiology. He had a new medicine with Valium early this morning after midnight. He denies any prior allergies. The symptoms and the rash seems to be settling and we have given him Benadryl. Will continue to monitor this closely. If this is clearing then I think that is okay to monitor expectantly and consider the possible allergy to the medication. He has not yet had a bowel movement and we will give him a Dulcolax suppository this morning. He does not have tenderness in his abdomen and is not overly distended but he is beginning to have some mild distention that we will have to monitor. Hopefully this will resolve with a bowel movement. The patient has been able to advance their diet, and is tolerating diet adequately. The pain was initially controlled with IV medications and is now controlled appropriately with oral medications. The patient has been able to increase their mobilization. If the rash clears and the patient is able to have a bowel movement then I think they are in stable condition for discharge today. They will be sent home with appropriate prescriptions. I answered their questions to the best of my ability in a language that they can understand and they are agreeable with the plan. They will follow up as directed. Patient Condition at Discharge: Fair Plan - Discharge Summary Discharge Rx Participant: Yes New Discharge Prescriptions: No Action HYDROcodone/APAP 7.5-325MG [[place] 7.5-325] 1 tab PO Q6HR PRN #28 tab PRN Reason: Pain [place]-3/Dha/Epa/Fish Oil [Fish Oil 1,000 mg Softgel] 1 tab PO DAILY Niacin 1 tab PO DAILY Discharge Medication List HYDROcodone/APAP 7.5-325MG [[place] 7.5-325] 1 tab PO Q6HR PRN #28 tab 08/09/23 [Rx] Niacin 1 tab PO DAILY 03/18/24 [History] [place]-3/Dha/Epa/Fish Oil [Fish Oil 1,000 mg Softgel] 1 tab PO DAILY 03/18/24 [History] Follow up Appointment(s)/Referral(s): Yaya Bashir DO [Doctor of Osteopathic Medicine] - 2 Weeks Activity/Diet/Wound Care/Special Instructions: Keep site clean. May shower with waterproof Tegaderm intact. Do not soak in a tub. After 72 hours postoperatively, patient May remove dressing and then may shower with area uncovered. Leave glue intact and allow it to fray off on its own. May ambulate as tolerated. Avoid heavy or rigorous activity. No repetitive bending twisting or lifting. No overhead work. Discharge Disposition: HOME SELF-CARE
[2024-04-06] MEDS: bisacodyL 10 MG SUPP RECTAL STA ×2 (14:22)
[2024-04-06 14:56] VITALS: BP 111/66; PULSE 105; TEMP 98.4
== END 2024-04-06 16:03 | disposition home or self-care (01) ==
LOC: OR 05:40 → 4SSUR 12:37 → OR 04-04 14:10 → 4SSUR 04-04 14:10
PROVIDERS: ADMIT Orthopaedic Surgery Orthopaedic Surgery of the Spine; ATTEND Orthopaedic Surgery Orthopaedic Surgery of the Spine
DX: M51.16 Intervertebral disc disorders with radiculopathy, lumbar region (principal); M43.16 Spondylolisthesis, lumbar region; M48.061 Spinal stenosis, lumbar region without neurogenic claudication; R21 Rash and other nonspecific skin eruption
CPT/HCPCS: 97116; 97530; 97161; 86900; 86901; 80048; 85025; 86850; 72100; 20930; 22853; 22859; 63052; 22633; G0378 ×3; C1713 ×2; C1762; J2250; J0690 ×3; J2405 ×2; J1170; 96361; 96365; 96366; 96375; 96376